=== PATIENT | female | born 1930 | race Caucasian/White ===

== ENCOUNTER 2017-03-09 19:05 | Inpatient (IN) ==
[2017-03-09] MEDS ORDERED: *HR* HYDROmorphone (PF) 1 MG/ML SYRINGE IVP ONE (19:08)
[2017-03-09] MEDS ORDERED: Ondansetron 4 MG/2 ML VIAL IVP ONE (19:14)
--- NOTE | 2017-03-09 19:36 | Emergency Department Note ---
Disposition Clinical Impression: Pancreatitis Qualifiers: Chronicity: acute Pancreatitis type: unspecified pancreatitis type Acute pancreatitis complication: unspecified Qualified Code(s): K85.90 - Acute pancreatitis without necrosis or infection, unspecified Disposition: Admitted As Inpatient Condition: Fair Time of Disposition: 21:55 Abdominal Pain HPI - General Chief Complaint: ED Abdominal Pain Stated Complaint: abdominal pain Time Seen by Provider: 03/09/17 19:07 Source: patient Mode of arrival: EMS Limitations: no limitations Nursing Notes Reviewed: Yes Vital Signs Reviewed: Yes - History of Present Illness HPI Narrative: Mr. Geronimo is an 86-year-old woman with a history of chronic pancreatitis, cholecystitis without surgical intervention who presents to the ED with severe epigastric and right upper quadrant abdominal pain for approximately 2 hours duration. She says the onset of the pain was immediate and it was 10 out of 10 , and she says that it feels almost exactly like the time that she had pancreatitis in the past. The pain is sharp, epigastric in location additionally with right upper quadrant pain that radiates towards the back, constant. Nothing makes the pain better or worse. She denies nausea and vomiting at this time, and also denies chest pain, shortness of breath. She also denies fevers and chills. She has no other acute complaints at this time. Pain Scale: 9 - Related Data Home Medications Medication Instructions Recorded Confirmed ALPRAZolam [Xanax 0.25 MG Tablet] 0.25 mg PO BID 05/06/15 05/06/15 Aspirin/Dipyridamole 25/200 MG 1 cap PO BID 05/06/15 05/06/15 [Aggrenox 25mg-200mg] Docusate [Colace] 100 mg PO BID 05/06/15 05/06/15 Losartan 100 mg PO DAILY 05/06/15 05/06/15 Oxycodone HCl/Acetaminophen 10 - 325 mg PO QID PRN 05/06/15 05/06/15 [Endocet 2.5-325 mg Tablet] Pravastatin Sodium [Pravachol] 40 mg PO DAILY 05/06/15 05/06/15 amLODIPine [Norvasc] 5 mg PO DAILY 05/06/15 05/06/15 Allergies Allergy/AdvReac Type Severity Reaction Status Date / Time No Known Allergies Allergy Verified 05/05/15 23:14 Constitutional: Denies: fever, chills Cardiovascular: Denies: chest pain, palpitations, dyspnea on exertion, orthopnea Respiratory: Denies: cough, dyspnea Gastrointestinal: Reports: constipation. Denies: nausea, vomiting, diarrhea, melena Genitourinary: Denies: urgency, dysuria Musculoskeletal: Denies: back pain, neck pain, myalgia Integumentary: Denies: rash, pruritus Neurological: Denies: headache Endocrine: Denies: heat or cold intolerance Allergic/Immunologic: Denies: urticaria Abdominal Pain PMH - Past Medical History Medical history: Reports: arthritis, asthma, CVA, GERD, GI bleed, hyperlipidemia , hypertension, osteoporosis, TIA, other Female Surgical History: Reports: no surgical history Psychiatric history: Reports: anxiety - Social History Smoking status: Former smoker Alcohol use: Reports: none Drug use: Reports: none Physical Exam Gen.: Vitals noted. No acute distress. AAOx3 HEENT: PERRL/EOMI, oropharynx clear, Normocephalic, atraumatic Neck: Supple. No adenopathy. Cardiac: RRR, no murmur, +S1/S2 Pulmonary: CTA bilaterally, no wheezes, rales or rhonchi, equal chest expansion Abdomen: soft, diffusely tender with exquisite tenderness located in epigastric and RUQ. Positive Berkowitz sign Back: Nontender throughout. MSK: no joint swelling noted Extremities: no BLE edema, nontender calf, no cyanosis or clubbing Neuro: A&Ox3, moves all extremities, no focal deficits Psych: Appropriate mood and behavior - General Limitations: no limitations General appearance: alert Course Vital Signs Temperature 97.5 F L 03/09/17 19:08 Pulse Rate 68 03/09/17 19:08 Respiratory Rate 18 03/09/17 19:08 Blood Pressure 171/76 03/09/17 19:08 O2 Sat by Pulse Oximetry 96 03/09/17 19:08 Temperature 97.5 F L 03/09/17 19:08 Pulse Rate 88 03/09/17 21:45 Respiratory Rate 16 03/09/17 21:45 Blood Pressure 125/84 03/09/17 21:45 O2 Sat by Pulse Oximetry 98 03/09/17 21:45 Oxygen Delivery Oxygen Delivery Room Air Abdominal Pain - MDM Narrative Medical decision making narrative: Reviewed patient's labs and imaging. The patient's presentation is consistent with acute pancreatitis which is seen on CT. I initiated pain medication as well as IV fluids. Due to the high-risk nature of this patient's condition, I will consult the hospitalist for admission to the hospital. - Differential Diagnosis Differential Diagnosis: Likely: diverticulosis, pancreatitis - Medical Records Medical records reviewed: Yes I reviewed the patient's medical records. - Lab Data Lab results reviewed: Yes I reviewed the patient's lab results. Result diagrams: 03/09/17 19:44 03/09/17 19:44 Lab Results 03/09/17 03/09/17 03/09/17 Range/Units 19:44 19:44 19:44 WBC 13.4 H (4.3-11.1) K/mcL RBC 3.95 (3.82-4.97) M/mcL Hgb 12.2 (11.5-15.4) g/dL Hct 37.1 (35.3-44.9) % MCV 93.9 (83.0-100.0) fL MCH 30.9 (28.0-33.3) pg MCHC 32.9 (31.6-35.5) g/dL RDW 11.6 (11.5-14.5) % Plt Count 233 (140-400) K/mcL MPV 8.9 L (9.4-12.4) fL Immature Gran % 0.4 (0-4) % Seg Neutrophils % 83.6 % Lymphocytes % 11.9 % Monocytes % 3.8 % Eosinophils % 0.2 % Basophils % 0.1 % Neutrophils # 11.2 H (1.6-8.9) K/mcL Lymphocytes # 1.6 (0.6-4.6) K/mcL Monocytes # 0.5 (0.0-1.3) K/mcL Eosinophils # 0.0 (0.0-0.6) K/mcL Basophils # 0.0 (0.0-0.2) K/mcL Immature Plt Fraction 2.0 (1.1-6.1) % Sodium 132 L (136-145) mEq/L Potassium 3.1 L (3.5-5.1) mEq/L Chloride 99 (98-107) mEq/L Carbon Dioxide 23 (23-29) mEq/L BUN 11 (8-23) mg/dL Creatinine 0.80 (0.60-1.20) mg/dL Est GFR ( Amer) > 60 (> 60) Est GFR (Non-Af Amer) > 60 (> 60) BUN/Creatinine Ratio 14 (6-26) Glucose 156 H (70-105) mg/dL Calculated Osmolality 277 L (280-300) Lactic Acid 2.0 (0.5-2.2) mmol/L Calcium 8.8 (8.6-10.3) mg/dL Total Bilirubin 0.9 (0.3-1.0) mg/dL Direct Bilirubin 0.5 H (0.0-0.2) mg/dL Indirect Bilirubin 0.4 (0.0-1.2) mg/dL AST 361 H (13-39) Units/L ALT 83 H (7-52) Units/L Alkaline Phosphatase 153 H (34-104) Units/L Troponin I (< 0.04) ng/mL Serum Total Protein 6.1 L (6.4-8.9) g/dL Albumin 3.6 (3.5-5.7) g/dL Globulin 2.5 (2.4-3.5) g/dL Albumin/Globulin Ratio 1.4 (1.1-2.2) Lipase 1257 H (11-82) Units/L Urine Color (Yellow) Urine Clarity (Clear) Urine pH (5.0-8.0) pH Units Ur Specific [place] (1.010-1.025) Urine Protein (Neg-Trace) mg/dL Urine Glucose (UA) (Normal) mg/dL Urine Ketones (Negative) mg/dL Urine Blood (Negative) Urine Nitrite (Negative) Urine Bilirubin (Negative) Urine Urobilinogen (Normal) mg/dL Ur Leukocyte Esterase (Negative) Urine Microscopic RBC (0-3) per hpf Urine Microscopic WBC (0-3) per hpf Ur Squamous Epith Cells (None-Few) per lpf Urine Bacteria (None-Few) per hpf Hyaline Casts (None-Few) per lpf Ur Culture Indicated? (NO) 03/09/17 03/09/17 Range/Units 19:44 20:12 WBC (4.3-11.1) K/mcL RBC (3.82-4.97) M/mcL Hgb (11.5-15.4) g/dL Hct (35.3-44.9) % MCV (83.0-100.0) fL MCH (28.0-33.3) pg MCHC (31.6-35.5) g/dL RDW (11.5-14.5) % Plt Count (140-400) K/mcL MPV (9.4-12.4) fL Immature Gran % (0-4) % Seg Neutrophils % % Lymphocytes % % Monocytes % % Eosinophils % % Basophils % % Neutrophils # (1.6-8.9) K/mcL Lymphocytes # (0.6-4.6) K/mcL Monocytes # (0.0-1.3) K/mcL Eosinophils # (0.0-0.6) K/mcL Basophils # (0.0-0.2) K/mcL Immature Plt Fraction (1.1-6.1) % Sodium (136-145) mEq/L Potassium (3.5-5.1) mEq/L Chloride (98-107) mEq/L Carbon Dioxide (23-29) mEq/L BUN (8-23) mg/dL Creatinine (0.60-1.20) mg/dL Est GFR ( Amer) (> 60) Est GFR (Non-Af Amer) (> 60) BUN/Creatinine Ratio (6-26) Glucose (70-105) mg/dL Calculated Osmolality (280-300) Lactic Acid (0.5-2.2) mmol/L Calcium (8.6-10.3) mg/dL Total Bilirubin (0.3-1.0) mg/dL Direct Bilirubin (0.0-0.2) mg/dL Indirect Bilirubin (0.0-1.2) mg/dL AST (13-39) Units/L ALT (7-52) Units/L Alkaline Phosphatase (34-104) Units/L Troponin I < 0.03 (< 0.04) ng/mL Serum Total Protein (6.4-8.9) g/dL Albumin (3.5-5.7) g/dL Globulin (2.4-3.5) g/dL Albumin/Globulin Ratio (1.1-2.2) Lipase (11-82) Units/L Urine Color Yellow (Yellow) Urine Clarity Clear (Clear) Urine pH 7.0 (5.0-8.0) pH Units Ur Specific [place] 1.020 (1.010-1.025) Urine Protein 30 H (Neg-Trace) mg/dL Urine Glucose (UA) Normal (Normal) mg/dL Urine Ketones Negative (Negative) mg/dL Urine Blood Negative (Negative) Urine Nitrite Negative (Negative) Urine Bilirubin Negative (Negative) Urine Urobilinogen 2.0 H (Normal) mg/dL Ur Leukocyte Esterase Moderate H (Negative) Urine Microscopic RBC 0-3 (0-3) per hpf Urine Microscopic WBC 5-15 H (0-3) per hpf Ur Squamous Epith Cells Many H (None-Few) per lpf Urine Bacteria Few (None-Few) per hpf Hyaline Casts Few (None-Few) per lpf Ur Culture Indicated? NO (NO) - Radiology Data Radiology results reviewed: Yes I reviewed the patient's radiology results. - EKG Data EKG attestation: Yes I reviewed and interpreted this EKG. EKG results narrative: EKG demonstrates normal sinus rhythm with a ventricular rate of 88 NE 160 QRS [address]-T depression in leads V4 through V6 but do not appear on previous EKG
[2017-03-09 19:44] LABS: Basophils % 0.1 %; Eosinophils % 0.2 %; Hematocrit 37.1 % (35.3-44.9); Hemoglobin 12.2 g/dL (11.5-15.4); Immature Granulocytes % 0.4 % (0-4); Lymphocytes # 1.6 K/mcL (0.6-4.6); Lymphocytes % 11.9 %; Mean Corpuscular HGB Conc 32.9 g/dL (31.6-35.5); Mean Corpuscular Hemoglobin 30.9 pg (28.0-33.3); Mean Corpuscular Volume 93.9 fL (83.0-100.0); Mean Platelet Volume 8.9 fL (9.4-12.4); Monocytes # 0.5 K/mcL (0.0-1.3); Monocytes % 3.8 %; Neutrophils # 11.2 K/mcL (1.6-8.9); Platelet Count 233 K/mcL (140-400); Red Blood Count 3.95 M/mcL (3.82-4.97); Red Cell Distribution Width 11.6 % (11.5-14.5); Segmented Neutrophils % 83.6 %
--- NOTE | 2017-03-09 20:06 | Emergency Department Note ---
START Narrative - START START: I examined this patient and my medical decision-making was reviewed with the REHABILITATION SPECIALIST/PA/Advanced Practice Nurse/Resident Physician. I agree with the documented findings, disposition and treatment plan as described except to the extent set forth below. I did see the patient spoke with an examine her. I did review the previous record. She does have a history of pancreatitis as well as cholecystitis but has not had surgery for this. The patient has 2-1/2 hours of severe abdominal pain which started approximately at 5:00 this evening. His epigastric pain radiating to the back. Significant discomfort with palpation especially in the epigastric area but also somewhat in the right upper quadrant and left upper quadrant but does have mild generalized discomfort also. The patient does have labs which are pending and CT scan I did receive Dilaudid 1 mg and Zofran 4 mg IV 2006
[2017-03-09] MEDS ORDERED: 0.9 % Sodium Chloride 1,000 ML IVC ONE (20:25)
[2017-03-09] MEDS ORDERED: 0.9 % Sodium Chloride 1,000 ML IVC SCH (20:30)
[2017-03-09] MEDS ORDERED: *HR* Morphine 2 MG/ML SYRINGE IVP ONE (20:40)
[2017-03-09 20:50] LABS: Bilirubin,Urine Negative (Negative); Blood,Urine Negative (Negative); Clarity,Urine Clear (Clear); Color,Urine Yellow (Yellow); Glucose,Urine (UA) Normal (Normal); Ketones,Urine Negative (Negative); Leukocyte Esterase,Urine Moderate (Negative); Nitrite,Urine Negative (Negative); Protein,Urine 30 mg/dL (Neg-Trace)
[2017-03-09 20:52] LABS: RBC,Urine 0-3 per hpf (0-3); Squamous Epithelial Cell,Urine Many per lpf (None-Few)
[2017-03-09 20:58] LABS: Alanine Aminotransferase 83 Units/L (7-52); Albumin 3.6 g/dL (3.5-5.7); Albumin/Globulin Ratio 1.4 (1.1-2.2); Alkaline Phosphatase 153 Units/L (34-104); Aspartate Amino Transferase 361 Units/L (13-39); BUN/Creatinine Ratio 14 (6-26); Bilirubin,Direct 0.5 mg/dL (0.0-0.2); Bilirubin,Indirect 0.4 mg/dL (0.0-1.2); Bilirubin,Total 0.9 mg/dL (0.3-1.0); Blood Urea Nitrogen 11 mg/dL (8-23); Calcium 8.8 mg/dL (8.6-10.3); Carbon Dioxide 23 mEq/L (23-29); Chloride 99 mEq/L (98-107); Globulin 2.5 g/dL (2.4-3.5); Glucose 156 mg/dL (70-105); Lipase 1257 Units/L (11-82); Osmolality,Calculated 277 (280-300); Potassium 3.1 mEq/L (3.5-5.1); Sodium 132 mEq/L (136-145); Total Protein 6.1 g/dL (6.4-8.9); eGFR For African Americans > 60 (> 60); eGFR For Non-African Americans > 60 (> 60)
[2017-03-09 21:04] LABS: Hyaline Casts,Urine Few per lpf (None-Few)
[2017-03-09 21:05] LABS: Bacteria,Urine Few per hpf (None-Few)
--- NOTE | 2017-03-10 00:44 | Internal Med History&Physical ---
Date of Encounter: 03/10/17 Time of Encounter: 00:43 Assessment and Plan (1) Acute on chronic pancreatitis Current visit: Yes Status: Acute Continue IVF hydration, pain control with morphine and zofran for nausea. Repeat lipase in AM. (2) ST segment depression Current visit: Yes Status: Acute Possibly related to volume loss. First troponin negative. Patient has sharp epigastric pain, denies substernal, dull chest pain. Repeat troponin and recheck EKG in AM after fluid hydration. (3) GERD (gastroesophageal reflux disease) Current visit: Yes Status: Acute PPI Qualifiers: Esophagitis presence: esophagitis presence not specified Qualified Code(s) : K21.9 - Gastro-esophageal reflux disease without esophagitis (4) Dyslipidemia Current visit: No Status: Chronic (5) Hypertension Current visit: No Status: Chronic losartan Qualifiers: Hypertension type: essential hypertension Qualified Code(s): I10 - Essential (primary) hypertension (6) DVT prophylaxis Current visit: Yes Status: Acute heparin sq 5000 units bid Internal Medicine - H&P: HPI History of present illness: Ms. Geronimo is a 86 year old female with history of pancreatitis, cholecystitis presents for severe abdominal pain. Pain is described as sharp, in epigastric region and radiates towards her back in between her shoulders. There were no alleviating factors. She eventually developed severe nausea, admits to poor PO intake recently. She most recent episode of pancreatitis with reactive cholecystitis was in 04/2015 and seen as outpatient by Dr. Pathak. CT of abdomen and pelvis today showed inflammatory changes in head of pancreas consistant with acute pancreatitis, gallbladder noted some gallbladder wallthickening versus pericholecystic fluid and did not mention any stones or biliary ductal dilatation. EKG showed ST depressions in V4-V6, with an initial troponin negative. Sodium and potassium were low, AST and ALT were 361 and 83 respectively with Alkaline phosphatase elevated at 153. In the ED she was given one liter of normal saline. She received 1 mg of Dilaudid followed by 4 mg of morphine one time. She currently complains of epigastric pain with nausea. She denies fevers/chills. Past Med Surg Social Fam HX - Past Medical History Medical history: arthritis, asthma, CVA, GERD, GI bleed, hyperlipidemia, hypertension, osteoporosis, TIA, other Psychiatric history: anxiety - Past Surgical History Surgical History: hysterectomy, orthopedic, other - Social History Smoking Status: Former smoker Smokeless Tobacco Status: No Alcohol use: none Drug use: none Internal Medicine - H&P: Meds ALPRAZolam [Xanax 0.25 MG Tablet] 0.25 mg PO BID 05/06/15 [History] Aspirin/Dipyridamole 25/200 MG [Aggrenox 25mg-200mg] 1 cap PO BID 05/06/15 [ History] Docusate [Colace] 100 mg PO BID 05/06/15 [History] Losartan 100 mg PO DAILY 05/06/15 [History] Oxycodone HCl/Acetaminophen [Endocet 2.5-325 mg Tablet] 10 - 325 mg PO QID PRN 05/06/15 [History] Pravastatin Sodium [Pravachol] 40 mg PO DAILY 05/06/15 [History] amLODIPine [Norvasc] 5 mg PO DAILY 05/06/15 [History] 3 Allergy/AdvReac Type Severity Reaction Status Date / Time No Known Allergies Allergy Verified 05/05/15 23:14 All Systems PM: A 10-system review of systems was performed and is negative for pertinent findings except as documented above in the HPI. - Constitutional Constitutional: fatigue, no fever(s), no night sweats - EENT Eyes: no change in vision, no discharge, no pain, no photophobia - Cardiovascular Cardiovascular ROS IM: no chest pain, no diaphoresis, no dyspnea, no lightheadedness, no palpitations, no syncope - Respiratory Respiratory: no cough, no dyspnea, no wheezing, no excessive phlegm production - Gastrointestinal Gastrointestinal: abdominal pain, nausea, no bloating, no change in bowel habits , no change in stool character, no coffee ground emesis, no constipation, no dyspepsia - Genitourinary Genitourinary: no change in urinary stream, no dysuria, no flank pain, no hematuria - Musculoskeletal Musculoskeletal ROS IM: no numbness, no tingling - Constitutional Vitals: Temp Pulse Resp BP Pulse Ox 98.7 F 89 16 169/81 96 03/09/17 22:32 03/09/17 22:32 03/09/17 22:32 03/09/17 22:32 03/09/17 22:32 General appearance: Present: mild distress, A&O X 3 - Respiratory Respiratory exam: Present: CTAB. Absent: accessory muscle use, rales, rhonchi, wheezes - Cardiovascular Cardiovascular exam: Present: RRR, +S1, +S2. Absent: diastolic murmur, gallop, rubs, systolic murmur - GI/Abdominal GI/Abdominal exam: Present: normal bowel sounds, soft, tenderness. Absent: distended, firm, guarding, rebound, rigid, no peritoneal signs Internal Med - H&P Results - Labs CBC & Chem 7: 03/09/17 19:44 03/09/17 19:44
[2017-03-10] MEDS ORDERED: Ondansetron 4 MG/2 ML VIAL IVP PRN (00:45)
[2017-03-10] MEDS ORDERED: *HR* OxyCODONE/APAP 5/325 TABLET PO PRN (00:45)
[2017-03-10] MEDS ORDERED: *HR* HYDROmorphone (PF) 1 MG/ML SYRINGE IVP ONE (00:45)
[2017-03-10] MEDS ORDERED: *HR* Morphine 2 MG/ML SYRINGE IVP PRN ×2 (00:45→11:37)
[2017-03-10] MEDS: 0.9 % Sodium Chloride 1,000 ML IVC SCH ×3 (01:22→20:49)
[2017-03-10] MEDS: *HR* Heparin 5,000 UNIT/ML VIAL SQ SCH ×2 (06:46→19:21)
[2017-03-10] MEDS: Pantoprazole 40 MG VIAL IVP SCH (08:04)
--- NOTE | 2017-03-10 10:03 | Event Note ---
Date of Encounter: 03/10/17 Time of Encounter: 09:30 Patient was seen and examined. She is admitted with an acute pancreatitis. This is recurrent. She has had it in the past multiple times. She had it earlier this year. At the time does question regarding elective laparoscopic cholecystectomy. At the time she did not want to go through that and wanted to follow up with Dr. florentino. Apparently she did see Dr. florentino sometime in the past I am not exactly sure what happened but the gallbladder was never removed. She tells me she wants her son involved in any decision making at this time regarding her gallbladder. We will continue to treat her acute pancreatitis as usual with IV fluids and bowel rest. She may be a candidate for an elective cholecystectomy once her acute issue resolves. We will asked Dr. florentino to see her.
--- NOTE | 2017-03-10 13:07 | General Surgery Consult Note ---
Date of Encounter: 03/10/17 Time of Encounter: 13:06 History of Present Illness Consult date: 03/10/17 Reason for consult: other (recurrent pancreatitis) Requesting physician: Usama Tai History of present illness: 86 yo, admitted after presenting to [facility] ED with recurrent severe abdominal pain without N/V. Laboratories notable for elevated white count, 13.4; neutrophilia 11.2%; hypokalemia 3.1; hyponatremia 132; elevated AST 361, ALT 83 , alkaline phosphatase 153, lipase 1257. Patient is known to me having presented to [facility] with recurrent acute pancreatitis April 2015. The patient has a history of prior pancreatitis June 2013. CT abdomen and pelvis completed 03/09/17 and ultrasound of the gallbladder completed 03/10/17 were reviewed with [facility] with comparison to imaging obtained during previous hospitalizations. The patient was last seen in my office 06/24/16. At that time and the lengthy extensive discussion was completed as to the potential benefit of surgery. Review of all current and previous imaging, including MRCP, do not conclusively demonstrate cholelithiasis. The 2 primary reasons for acute pancreatitis in [facility] include gallstones and alcohol abuse. Other causes of pancreatitis include idiopathic etiologies such as thiazide diuretics, hypertriglyceridemia, hyperlipidemia, peptic ulcer disease with extension of the ulcer and associated inflammation into the pancreas, cholesterol lowering agents, and spasm of the sphincter of Oddi. The patient's past medical history include: Recurrent acute pancreatitis as noted, recent ST segment depression, GERD, dyslipidemia, hypertension, history thiazide diuretics; arthritis, asthma, previous stroke, osteoporosis; chronic hip and back pain. Surgical history: Hysterectomy, rotator cuff repair Allergies: Patient indicates no known drug allergies, however, previous medical records indicate allergies to Cipro and baclofen Medications: Alprazolam 0.25 mg by mouth twice a day Aspirin/dipyridamole 25/200 one by mouth twice a day Docusate 100 mg by mouth twice a day Losartan 100 mg by mouth daily Oxycodone with acetaminophen either 2.5/325 or 10/325 4 times daily as needed for pain Pravastatin 40 mg by mouth daily Amlodipine 5 mg by mouth daily Social history: Patient is a former smoker; she quit approximately 1999. The patient admits to history of alcohol consumption the past but none recently. Menarche at age 12; menopause not recalled; G2, P2. Physical examination: Elderly patient resting comfortably in her hospital bed. She does not appear to be in acute distress. Skin is warm, without evidence of jaundice. Patient has not been febrile, currently 98.1; [place]on temperature through the night 99.3. Pulse 77, respirations 16 and unlabored, blood pressure 103/58; SPO2 on room air 97%. Lungs: Clear bilaterally with diminished bibasilar breath sounds; no audible wheezes or rales Cardiac: Regular rate, no appreciable murmurs Abdomen: Soft, nondistended with mild dario-umbilical and epigastric abdominal pain. No obvious masses. No rebound. Hypoactive bowel sounds. Extremities: No obvious clubbing, cyanosis, or edema. Impression: A 86-year-old female with recurrent pancreatitis. Etiology remains obscure and in question as, to date, no gallstones have been definitively identified. Treatment options include cholecystectomy. Surgical risks include hemorrhage, infection, intra-abdominal abscess, bile leak, injury to adjacent ducts, vessels, organs, and bowel. Possible recurrent acute pancreatitis as well as development postcholecystectomy diarrhea. Current status appears improved as pain is diminished and lipase has diminished to 423. Surgical option discussed with patient. The patient has been encouraged to discuss this with her family. Thank you for this consultation, I will follow with you. Past Med Surg Social Fam HX - Past Medical History Medical history: arthritis, asthma, CVA, GERD, GI bleed, hyperlipidemia, hypertension, osteoporosis, TIA, other Psychiatric history: anxiety - Past Surgical History Surgical History: hysterectomy, orthopedic, other - Social History Smoking Status: Former smoker Smokeless Tobacco Status: No Alcohol use: none Drug use: none Medications and Allergies ALPRAZolam [Xanax 0.25 MG Tablet] 0.125 mg PO BID 05/06/15 [History] Docusate [Colace] 100 mg PO BID 05/06/15 [History] Pravastatin Sodium [Pravachol] 40 mg PO DAILY 05/06/15 [History] Clopidogrel [Plavix] 75 mg PO DAILY 03/10/17 [History] Losartan [Cozaar] 100 mg PO DAILY 03/10/17 [History] Metoprolol XL (24 HR) Succ [Toprol XL] 50 mg PO DAILY 03/10/17 [History] OxyCODONE ER (12 HR) [OxyCONTIN] 20 mg PO Q12HR 03/10/17 [History] Oxycodone HCl/Acetaminophen [Percocet 10-325 mg Tablet] 1 tab PO Q6H PRN [History] hydroCHLOROthiazide [Hydrochlorothiazide] 25 mg PO DAILY 03/10/17 [History] 3 Allergy/AdvReac Type Severity Reaction Status Date / Time No Known Allergies Allergy Verified 05/05/15 23:14 Review of Systems All systems PM: A 10-system review of systems was performed and is negative for pertinent findings except as documented above in the HPI. General Surgery Exam Initial Vital Signs Temp Pulse Resp BP Pulse Ox 97.5 F L 68 18 171/76 96 03/09/17 19:08 03/09/17 19:08 03/09/17 19:08 03/09/17 19:08 03/09/17 19:08 Exam Initial Vital Signs Temp Pulse Resp BP Pulse Ox 97.5 F L 68 18 171/76 96 03/09/17 19:08 03/09/17 19:08 03/09/17 19:08 03/09/17 19:08 03/09/17 19:08 Results - Labs 03/09/17 19:44 03/09/17 19:44 Abnormal lab results WBC 13.4 K/mcL (4.3-11.1) H 03/09/17 19:44 MPV 8.9 fL (9.4-12.4) L 03/09/17 19:44 Neutrophils # 11.2 K/mcL (1.6-8.9) H 03/09/17 19:44 Sodium 132 mEq/L (136-145) L 03/09/17 19:44 Potassium 3.1 mEq/L (3.5-5.1) L 03/09/17 19:44 Glucose 156 mg/dL (70-105) H 03/09/17 19:44 Calculated Osmolality 277 (280-300) L 03/09/17 19:44 Direct Bilirubin 0.5 mg/dL (0.0-0.2) H 03/09/17 19:44 AST 361 Units/L (13-39) H 03/09/17 19:44 ALT 83 Units/L (7-52) H 03/09/17 19:44 Alkaline Phosphatase 153 Units/L (34-104) H 03/09/17 19:44 Serum Total Protein 6.1 g/dL (6.4-8.9) L 03/09/17 19:44 Lipase 423 Units/L (11-82) H 03/10/17 03:20 Urine Protein 30 mg/dL (Neg-Trace) H 03/09/17 20:12 Urine Urobilinogen 2.0 mg/dL (Normal) H 03/09/17 20:12 Ur Leukocyte Esterase Moderate (Negative) H 03/09/17 20:12 Urine Microscopic WBC 5-15 per hpf (0-3) H 03/09/17 20:12 Ur Squamous Epith Cells Many per lpf (None-Few) H 03/09/17 20:12 All other labs normal. Consult Discharge Plan - Plan Referrals: Samir Chino Jr, MD [Primary Care Provider] -
--- NOTE | 2017-03-10 18:23 | Electrocardiograph Report ---
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
[2017-03-10] MEDS: *HR* OxyCODONE/APAP 5/325 TABLET PO PRN (20:21)
[2017-03-11] MEDS ORDERED: *HR* LORazepam 2 MG/ML VIAL IVP ONE (04:31)
[2017-03-11 04:44] LABS: Bilirubin,Urine Small (Negative); Blood,Urine Negative (Negative); Clarity,Urine Cloudy (Clear); Color,Urine Dark Yellow (Yellow); Glucose,Urine (UA) Normal (Normal); Ketones,Urine Negative (Negative); Leukocyte Esterase,Urine Small (Negative); Nitrite,Urine Negative (Negative); Protein,Urine Trace mg/dL (Neg-Trace); Specific Gravity,Urine 1.016 (1.010-1.025); Urobilinogen,Urine Normal (Normal)
[2017-03-11 04:46] LABS: Bacteria,Urine None Seen per hpf (None-Few); Hyaline Casts,Urine None Seen per lpf (None-Few); RBC,Urine 0-3 per hpf (0-3); Squamous Epithelial Cell,Urine Many per lpf (None-Few)
[2017-03-11] MEDS: 0.9 % Sodium Chloride 1,000 ML IVC SCH ×2 (04:55→11:42)
[2017-03-11] MEDS ORDERED: 0.9 % Sodium Chloride 1,000 ML IVC SCH (05:00)
[2017-03-11] MEDS: *HR* Heparin 5,000 UNIT/ML VIAL SQ SCH ×2 (05:42→16:20)
[2017-03-11 06:56] LABS: Alanine Aminotransferase 121 Units/L (7-52); Albumin 2.4 g/dL (3.5-5.7); Albumin/Globulin Ratio 1.3 (1.1-2.2); Alkaline Phosphatase 99 Units/L (34-104); Amylase 69 Units/L (29-103); Aspartate Amino Transferase 148 Units/L (13-39); BUN/Creatinine Ratio 32 (6-26); Bilirubin,Total 0.5 mg/dL (0.3-1.0); Blood Urea Nitrogen 15 mg/dL (8-23); Calcium 7.3 mg/dL (8.6-10.3); Carbon Dioxide 18 mEq/L (23-29); Chloride 111 mEq/L (98-107); Globulin 1.8 g/dL (2.4-3.5); Glucose 81 mg/dL (70-105); Lipase 62 Units/L (11-82); Osmolality,Calculated 282 (280-300); Potassium 2.7 mEq/L (3.5-5.1); Sodium 136 mEq/L (136-145); Total Protein 4.2 g/dL (6.4-8.9); eGFR For African Americans > 60 (> 60); eGFR For Non-African Americans > 60 (> 60)
[2017-03-11 06:58] LABS: Basophils % 0.1 %; Eosinophils % 0.1 %; Hematocrit 31.3 % (35.3-44.9); Immature Granulocytes % 0.2 % (0-4); Lymphocytes # 1.2 K/mcL (0.6-4.6); Lymphocytes % 11.9 %; Mean Corpuscular HGB Conc 31.9 g/dL (31.6-35.5); Mean Corpuscular Hemoglobin 31.5 pg (28.0-33.3); Mean Corpuscular Volume 98.7 fL (83.0-100.0); Mean Platelet Volume 9.7 fL (9.4-12.4); Monocytes # 0.5 K/mcL (0.0-1.3); Monocytes % 4.5 %; Neutrophils # 8.4 K/mcL (1.6-8.9); Platelet Count 115 K/mcL (140-400); Red Blood Count 3.17 M/mcL (3.82-4.97); Red Cell Distribution Width 12.2 % (11.5-14.5); Segmented Neutrophils % 83.2 %
[2017-03-11] MEDS: Pantoprazole 40 MG VIAL IVP SCH (07:52)
[2017-03-11] MEDS ORDERED: Potassium Chloride 40 MEQ, Lidocaine 1% 2 ML in D5% in Water 500 ML IVPB ONE ×2 (10:10→10:12)
--- NOTE | 2017-03-11 10:10 | General Surgery Progress Note ---
Date of Encounter: 03/11/17 Time of Encounter: 10:02 Subjective Patient reports: feels better, still having pain Narrative: General Surgery - follow up acute pancreatitis Patient resting comfortably but on awakening was quite confused. Nursing report the patient trying to bite them. The patient also tried to strike me as I tried to examine her. The patient continues to exhibit signs and symptoms of persistent epigastric abdominal pain. On reexamination, this abdominal pain seemed to be less than on initial examination Patient remains afebrile, most recently 97.7, hemodynamically stable with pulse 72, respirations 16, blood pressure 121/67. Lungs: Clear though respiratory effort was diminished Abdomen: Persistent periumbilical and supraumbilical tenderness; no discernible masses. No rebound. Active bowel sounds Unable to determine if the patient passed flatus. Small formed bowel movement recorded 03/10/17 Laboratories: Leukocytosis resolved, 10.1; hemoglobin and hematocrit have fallen to 10.0 and 31.3 respectively - likely due to acute illness and IV fluids Platelet count has diminished to 115,000 - possibly due to HIT Electrodes notable for sodium has corrected to 136, potassium of 2.7, chloride 111, BUN 15, creatinine 0.47 AST improved to 148, ALT to 121, alkaline phosphatase 99; total bilirubin 0.5. 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 Recommendations: Allow clear liquids; have discussed with dietitian providing supplements May advance diet as tolerated as long as patient does not demonstrate increasing abdominal pain, N/V, or signs and symptoms of worsening pancreatitis Discussion regarding surgery/cholecystectomy ongoing with patient and family Objective Vital Signs - Last 8 Hours Temp Pulse Resp BP Pulse Ox 03/11/17 04:00 97.7 F 72 16 121/67 93 Intake and Output 03/10/17 03/11/17 03/11/17 23:59 07:59 15:59 Intake Total 1000 / 1000 1000 / 1000 0 / 0 Output Total 300 / 300 0 / 0 Balance 1000 / 1000 700 / 700 0 / 0 Intake: IV Fluids 1000 / 1000 1000 / 1000 0.9 % Sodium Chloride 1,000 ML 1000 / 1000 1000 / 1000 @ 125 mls/hr IVC .Q8H MATTHEW Rx#: [id number] Oral 0 / 0 0 / 0 0 / 0 Output: Urine 300 / 300 0 / 0 Other: Meal NPO Percent of Meal Consumed 0% Stool Size Small Stool Consistency formed Stool Color Brown # Bowel Movements 1 Weight 47.8 kg Blood Glucose* 98 94 Patient Weight 03/11/17 23:59 Weight 47.8 kg - Labs 03/11/17 06:32 03/11/17 06:32 Diabetes panel 03/11/17 Range/Units 06:32 Sodium 136 (136-145) mEq/L Potassium 2.7 L (3.5-5.1) mEq/L Chloride 111 H (98-107) mEq/L Carbon Dioxide 18 L (23-29) mEq/L BUN 15 (8-23) mg/dL Creatinine 0.47 L (0.60-1.20) mg/dL Glucose 81 (70-105) mg/dL Calcium 7.3 L (8.6-10.3) mg/dL AST 148 H (13-39) Units/L ALT 121 H (7-52) Units/L Alkaline Phosphatase 99 (34-104) Units/L Albumin 2.4 L (3.5-5.7) g/dL Calcium panel 03/11/17 Range/Units 06:32 Calcium 7.3 L (8.6-10.3) mg/dL Albumin 2.4 L (3.5-5.7) g/dL Pituitary panel 03/11/17 Range/Units 06:32 Sodium 136 (136-145) mEq/L Potassium 2.7 L (3.5-5.1) mEq/L Chloride 111 H (98-107) mEq/L Carbon Dioxide 18 L (23-29) mEq/L BUN 15 (8-23) mg/dL Creatinine 0.47 L (0.60-1.20) mg/dL Glucose 81 (70-105) mg/dL Calcium 7.3 L (8.6-10.3) mg/dL Adrenal panel 03/11/17 Range/Units 06:32 Sodium 136 (136-145) mEq/L Potassium 2.7 L (3.5-5.1) mEq/L Chloride 111 H (98-107) mEq/L Carbon Dioxide 18 L (23-29) mEq/L BUN 15 (8-23) mg/dL Creatinine 0.47 L (0.60-1.20) mg/dL Glucose 81 (70-105) mg/dL Calcium 7.3 L (8.6-10.3) mg/dL Total Bilirubin 0.5 (0.3-1.0) mg/dL AST 148 H (13-39) Units/L ALT 121 H (7-52) Units/L Alkaline Phosphatase 99 (34-104) Units/L Albumin 2.4 L (3.5-5.7) g/dL Consult Discharge Plan - Plan Referrals: Samir Chino Jr, MD [Primary Care Provider] -
--- NOTE | 2017-03-11 10:20 | Internal Med Progress Note ---
Date of Encounter: 03/11/17 Time of Encounter: 10:15 - Assessment and plan (1) Confusion Current Visit: Yes Status: Acute Assessment and plan: Patient may be . We will try to reorient the patient today. We will see how her mental status does throughout the day. She is completely oriented yesterday. We will continue to follow. (2) Hypertension Current Visit: No Status: Chronic Assessment and plan: Blood pressure is stable despite holding her blood pressure medications. I will continue to hold today. Qualifiers: Hypertension type: essential hypertension Qualified Code(s): I10 - Essential (primary) hypertension (3) Pancreatitis, acute Current Visit: No Status: Resolved Assessment and plan: Seems to be doing well. Her lipase is normalized. Surgery is following. She will follow-up with Dr. florentino as an outpatient. We will advance diet to clear liquid diet today. Possibly discharge tomorrow. Does not seem to be in so much pain as she has only used one Royal since admission. Qualifiers: Pancreatitis type: unspecified pancreatitis type Acute pancreatitis complication: unspecified Qualified Code(s): K85.90 - Acute pancreatitis without necrosis or infection, unspecified (4) Hypokalemia Current Visit: Yes Status: Acute Assessment and plan: We will give 60 of oral potassium and 40 of IV potassium. We will check potassium level at 4 PM today. (5) DVT prophylaxis Current Visit: Yes Status: Acute Assessment and plan: Heparin subcutaneous - Subjective Interval history: No acute events. The patient is somewhat confused this morning. She was not aware that she has not been a regional. She was not like this yesterday. She just woke up however. She has been nothing by mouth. She was seen by surgery with no plans for any surgical interventions. She wants to be home for [place]. She has been afebrile. - Constitutional Vitals: Temp Pulse Resp BP Pulse Ox 97.7 F 72 16 121/67 93 03/11/17 04:00 03/11/17 04:00 03/11/17 04:00 03/11/17 04:00 03/11/17 04:00 General appearance: Present: mild distress, A&O X 3 Exam: GEN: NAD. alert to self only CVS: RRR. S1, S2, No m/r/g RESP: CTAB ABD: Soft, NT, ND, +BS EXT: No edema. 2+ DP, No rashes NEURO: Nonfocal Internal Medicine: Result - Labs CBC & Chem 7: 03/11/17 06:32 03/11/17 06:32 Labs: Short CBC 03/11/17 Range/Units 06:32 WBC 10.1 (4.3-11.1) K/mcL Hgb 10.0 L D (11.5-15.4) g/dL Hct 31.3 L (35.3-44.9) % Plt Count 115 L D (140-400) K/mcL Neutrophils # 8.4 (1.6-8.9) K/mcL BMP 03/11/17 06:32 Sodium 136 Potassium 2.7 L Chloride 111 H Carbon Dioxide 18 L BUN 15 Creatinine 0.47 L Glucose 81 Calcium 7.3 L Liver Function 03/11/17 Range/Units 06:32 Total Bilirubin 0.5 (0.3-1.0) mg/dL AST 148 H (13-39) Units/L ALT 121 H (7-52) Units/L Alkaline Phosphatase 99 (34-104) Units/L Albumin 2.4 L (3.5-5.7) g/dL Urine 03/11/17 Range/Units 04:18 Urine Color Dark Yellow (Yellow) Urine Clarity Cloudy A (Clear) Urine pH 6.0 (5.0-8.0) pH Units Ur Specific [place] 1.016 (1.010-1.025) Urine Protein Trace (Neg-Trace) mg/dL Urine Glucose (UA) Normal (Normal) mg/dL Consult Discharge Plan - Plan Referrals: Samir Chino Jr, MD [Primary Care Provider] -
[2017-03-11] MEDS: *HR* OxyCODONE/APAP 5/325 TABLET PO PRN ×2 (11:43→21:43)
[2017-03-12] MEDS: 0.9 % Sodium Chloride 1,000 ML IVC SCH (04:33)
[2017-03-12] MEDS: *HR* Heparin 5,000 UNIT/ML VIAL SQ SCH (04:34)
[2017-03-12 04:48] LABS: Basophils % 0.1 %; Eosinophils % 0.2 %; Hemoglobin 10.3 g/dL (11.5-15.4); Immature Granulocytes % 0.4 % (0-4); Lymphocytes # 1.6 K/mcL (0.6-4.6); Lymphocytes % 18.8 %; Mean Corpuscular HGB Conc 32.2 g/dL (31.6-35.5); Mean Corpuscular Hemoglobin 30.9 pg (28.0-33.3); Mean Corpuscular Volume 96.1 fL (83.0-100.0); Mean Platelet Volume 9.4 fL (9.4-12.4); Monocytes # 0.4 K/mcL (0.0-1.3); Monocytes % 5.1 %; Neutrophils # 6.4 K/mcL (1.6-8.9); Platelet Count 146 K/mcL (140-400); Red Blood Count 3.33 M/mcL (3.82-4.97); Red Cell Distribution Width 12.3 % (11.5-14.5); Segmented Neutrophils % 75.4 %
[2017-03-12 04:59] LABS: BUN/Creatinine Ratio 23 (6-26); Blood Urea Nitrogen 11 mg/dL (8-23); Calcium 7.6 mg/dL (8.6-10.3); Carbon Dioxide 20 mEq/L (23-29); Chloride 113 mEq/L (98-107); Glucose 94 mg/dL (70-105); Osmolality,Calculated 281 (280-300); Sodium 136 mEq/L (136-145); eGFR For African Americans > 60 (> 60); eGFR For Non-African Americans > 60 (> 60)
--- NOTE | 2017-03-12 09:37 | Discharge Summary ---
Date of Encounter: 03/12/17 Time of Encounter: 09:00 - Discharge Diagnosis (1) Confusion Priority: Primary Status: Acute (2) Hypertension Priority: Secondary Status: Chronic Qualifiers: Hypertension type: essential hypertension Qualified Code(s): I10 - Essential (primary) hypertension (3) Pancreatitis, acute Priority: Primary Status: Resolved Qualifiers: Pancreatitis type: unspecified pancreatitis type Acute pancreatitis complication: unspecified Qualified Code(s): K85.90 - Acute pancreatitis without necrosis or infection, unspecified (4) Hypokalemia Priority: Primary Status: Acute - Discharge Medications Home Medications: ALPRAZolam [Xanax 0.25 MG Tablet] 0.125 mg PO BID 05/06/15 [History] Docusate [Colace] 100 mg PO BID 05/06/15 [History] Pravastatin Sodium [Pravachol] 40 mg PO DAILY 05/06/15 [History] Clopidogrel [Plavix] 75 mg PO DAILY 03/10/17 [History] Losartan [Cozaar] 100 mg PO DAILY 03/10/17 [History] Metoprolol XL (24 HR) Succ [Toprol Xl] 50 mg PO DAILY 03/10/17 [History] OxyCODONE ER (12 HR) [OxyCONTIN] 20 mg PO Q12HR 03/10/17 [History] Oxycodone HCl/Acetaminophen [Percocet 10-325 mg Tablet] 1 tab PO Q6H PRN [History] hydroCHLOROthiazide [Hydrochlorothiazide] 25 mg PO DAILY 03/10/17 [History] Allergies/Adverse Reactions: 3 Allergy/AdvReac Type Severity Reaction Status Date / Time No Known Allergies Allergy Verified 05/05/15 23:14 Date of admission: 03/10/17 12:03 Primary care physician: Samir Chino Jr, MD Consults: 03/10/17 12:30 Consult to Physical Therapy [CONS] Routine Comment: Evaluate, develop and implement POC Reason for Consult: weakness lives alone 03/10/17 12:31 Consult to Occupational Therapy [CONS] Routine Comment: Evaluate, develop and implement POC Reason for Consult: weakness lives alone - Patient Status Disposition: Home, Self-Care Overall status at discharge: patient is back to baseline - Discharge Instructions Instructions: Pancreatitis (DC) Follow Up With: Samir Chino Jr, MD [Primary Care Provider] - Lang Pathak MD [Non-Partnered Physician] - (2 weeks) Additional Instructions: Follow up with Dr. Pathak in 2-3 weeks. Call office ([phone]) on 03/15 or 03/16 to schedule appointment. - Diet and Activity Activity: resume usual activities as tolerated Hospital course: Ms. Geronimo is a 86 year old female with history of pancreatitis who presented with severe abdominal pain. Of note the patient was admitted in the past for pancreatitis and was thought to be possibly related to gallbladder disease although this was never definitive. At that time she was offered cholecystectomy which she refused. This time she was again admitted with acute pancreatitis. She had a CT abdomen and pelvis which showed inflammatory changes in head of pancreas consistent with acute pancreatitis, gallbladder noted some gallbladder wallthickening versus pericholecystic fluid and did not mention any stones or biliary ductal dilatation. EKG showed ST depressions in V4-V6, with troponins being negative she was admitted to the hospitalist service for acute pancreatitis. I did get a right upper quadrant ultrasound which came back unremarkable. We Continued with IV fluids and bowel rest. I did consult with Dr. Pathak who saw the patient continued conservative management. She tolerated diet well and was able to be discharged on 2016 with follow-up with her primary care physician as well as surgery. - Time Spent with Patient Total time spent providing and/or coordinating discharge services: Greater than 30 minutes - Constitutional Vitals: Temp Pulse Resp BP Pulse Ox 98.6 F 81 15 157/66 98 03/11/17 18:56 03/11/17 18:56 03/11/17 18:56 03/11/17 18:56 03/11/17 18:56 General appearance: Present: mild distress, A&O X 3 Exam: GEN: NAD CVS: RRR. S1, S2, No m/r/g RESP: CTAB ABD: Soft, NT, ND, +BS EXT: No edema. 2+ DP. No rashes NEURO: Nonfocal
[2017-03-12 10:07] VITALS: BP 190/78
== END 2017-03-12 11:44 | disposition home or self-care (01) | DRG 439 ==
LOC: EMEROO 19:05 → 3ANU 19:05
PROVIDERS: ADMIT Internal Medicine; ATTEND Internal Medicine

== ENCOUNTER 2017-07-30 19:54 | Inpatient (IN) ==
--- NOTE | 2017-07-30 20:12 | Emergency Department Note ---
Disposition Clinical Impression: Weakness Disposition: Still a Patient Condition: Good Referrals: Samir Chino Jr, MD [Primary Care Provider] - General Adult HPI - General Chief complaint: ED Weakness Stated complaint: Weakness Time Seen by Provider: 07/30/17 19:58 Source: patient, EMS Limitations: no limitations - History of Present Illness Pain Scale: 0 - Related Data Home Medications Medication Instructions Recorded Confirmed Citalopram Hydrobromide 20 mg PO DAILY 07/30/17 07/30/17 [Citalopram HBr] Clopidogrel [Plavix] 75 mg PO DAILY 07/30/17 07/30/17 Metoprolol [Lopressor] 25 mg PO DAILY 07/30/17 07/30/17 OxyCODONE/APAP 10/325 [Percocet 1 each PO BID 07/30/17 07/30/17 10/325 MG] Pravastatin Sodium [Pravachol] 40 mg PO HS 07/30/17 07/30/17 Allergies Allergy/AdvReac Type Severity Reaction Status Date / Time No Known Allergies Allergy Verified 05/05/15 23:14 Past Medical History - Past Medical History Medical history: Reports: arthritis, asthma, CVA, GERD, GI bleed, hyperlipidemia , hypertension, osteoporosis, TIA, other Surgical history: Reports: hysterectomy, orthopedic, other Psychiatric history: Reports: anxiety PRODUCTION GRADER history: Reports: no PRODUCTION GRADER history - Social History Smoking Status: Former smoker Smokeless Tobacco Status: No Alcohol use: Reports: none Drug use: Reports: none Physical Exam - General Limitations: no limitations General appearance: alert Course - Reevaluation(s) Reevaluation #1: Attestation Note I examined this patient and my medical decision-making was reviewed with the Resident Physician, ASTRID FELIX. I agree with the documented findings, disposition and treatment plan as described except to the extent set forth below. I have personally performed a face to face evaluation on this patient. I have reviewed and agree with the care plan. Briefly: 87-year-old female poor historian presented by EMS for generalized weakness for several weeks leg swelling getting worse with some oozing. No family members present at this time. Patient appears to have some baseline dementia but is not acutely altered. We will get Doppler pulses on her feet. With that appears to be chronic edema and chronic hyperpigmentation and skin changes on her bilateral tibias. Patient will undergo a laboratory and imaging. Disposition pending, however admission anticipated. Time: 20:11 Vital Signs Temperature 98.8 F 07/30/17 20:00 Pulse Rate 67 07/30/17 20:00 Respiratory Rate 16 07/30/17 20:00 Blood Pressure 106/81 07/30/17 20:00 O2 Sat by Pulse Oximetry 99 07/30/17 20:00 Temperature 98.8 F 07/30/17 20:00 Pulse Rate 67 07/30/17 20:00 Respiratory Rate 16 07/30/17 20:00 Blood Pressure 106/81 07/30/17 20:00 O2 Sat by Pulse Oximetry 99 07/30/17 20:00 Oxygen Delivery Oxygen Delivery Room Air
--- NOTE | 2017-07-30 20:22 | Emergency Department Note ---
Disposition Clinical Impression: Weakness, Hypokalemia, Failure to thrive in adult Disposition: Admitted As Inpatient Condition: Good Referrals: Samir Chino Jr, MD [Primary Care Provider] - Forms: ED Satisfaction Letter Weakness HPI - General Chief complaint: ED Weakness Stated complaint: Weakness Time Seen by Provider: 07/30/17 19:58 Source: patient, EMS Mode of arrival: EMS Limitations: no limitations Nursing Notes Reviewed: Yes Vital Signs Reviewed: Yes - History of Present Illness HPI Narrative: 87-year-old female presents to the ER via EMS due to concern for weakness. EMS reports she has had declining activity at home since February. Was recently admitted for pancreatitis. States that her appetite has been poor at home and family was concerned because she is eating as well. They report that she does live at home alone. Family is able to check in on her. The patient is alert and oriented 3 however she continues to perseverate on the fact that she did not know that she would be here and that she was in [place] yesterday. She voices no other complaints. Pt Subjective Complaint: generalized weakness/fatigue Onset (ago): unknown Migration: none Pain Severity: none Pain Scale: 0 Improves with: none Worsens with: none Associated symptoms: Reports: denies other symptoms - Related Data Home Medications Medication Instructions Recorded Confirmed Citalopram Hydrobromide 20 mg PO DAILY 07/30/17 07/30/17 [Citalopram HBr] Clopidogrel [Plavix] 75 mg PO DAILY 07/30/17 07/30/17 Metoprolol [Lopressor] 25 mg PO DAILY 07/30/17 07/30/17 OxyCODONE/APAP 10/325 [Percocet 1 each PO BID 07/30/17 07/30/17 10/325 MG] Pravastatin Sodium [Pravachol] 40 mg PO HS 07/30/17 07/30/17 Allergies Allergy/AdvReac Type Severity Reaction Status Date / Time No Known Allergies Allergy Verified 05/05/15 23:14 All systems ED: reviewed and negative except as stated. Constitutional: Denies: fever, chills Cardiovascular: Denies: chest pain Respiratory: Denies: dyspnea Gastrointestinal: Denies: abdominal pain, nausea, vomiting Past Medical History - Past Medical History Attestation: Yes The following information was validated with the patient. 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 TRADE ANALYST history - Social History Smoking Status: Former smoker Smokeless Tobacco Status: No Alcohol use: Reports: none Drug use: Reports: none Physical Exam - General Limitations: no limitations General appearance: alert, in no apparent distress - Head Head exam: atraumatic, normocephalic, normal inspection - Eye Eye exam: Present: normal appearance - ENT ENT exam: normal exam - Neck Neck exam: Present: normal inspection - Chest Chest inspection: Present: normal inspection, symmetric chest wall rise - Respiratory Respiratory exam: Present: normal lung sounds bilaterally - Cardiovascular Cardiovascular exam: Present: regular rate, normal rhythm, normal heart sounds - Abdominal Exam Abdominal exam: Present: soft, Non-Tender. Absent: tenderness, distention, rigidity - Extremities Exam Extremities exam: Present: normal inspection, full ROM - Expanded Upper Extremity Exam Shoulder exam: Present: normal inspection, full ROM Arm exam: Present: normal inspection, full ROM Elbow exam: Present: normal inspection, full ROM Forearm/Wrist exam: Present: normal inspection, full ROM Hand exam: Present: normal inspection, full ROM - Expanded Lower Extremity Exam Hip/Pelvis exam: Present: normal inspection, full ROM Upper leg exam: Present: normal inspection, full ROM Knee exam: Present: normal inspection, full ROM Lower leg exam: Present: normal inspection, full ROM, other (Chronic venous stasis changes to the bilateral lower extremities. Lymphedema of the feet. Dopplerable pulse bilaterally for posterior tibial) Ankle exam: Present: normal inspection, full ROM Foot/toe exam: Present: normal inspection, full ROM - Neurological Exam Neurological exam: Present: alert, oriented X3, other (GCS 14. Nonfocal.) - Skin Skin exam: Present: warm, dry Course Course Narrative: Patient seen and examined. Vital signs reviewed. We will get a CT scan of the head, EKG, overload, urinalysis. We will wait for family to get here and discuss their concerns as well. - Reevaluation(s) Reevaluation #1: Discussed results of imaging labs with the patient and family. Family at bedside reports that she has had poor appetite for the last month as well as worsening confusion at home. They are unable to take care of her at this time. We will discuss for admission. Vital Signs Temperature 98.8 F 07/30/17 20:00 Pulse Rate 67 07/30/17 20:00 Respiratory Rate 16 07/30/17 20:00 Blood Pressure 106/81 07/30/17 20:00 O2 Sat by Pulse Oximetry 99 07/30/17 20:00 Temperature 98.8 F 07/30/17 20:00 Pulse Rate 59 07/30/17 22:27 Respiratory Rate 16 07/30/17 22:27 Blood Pressure 108/51 07/30/17 22:27 O2 Sat by Pulse Oximetry 97 07/30/17 22:27 Oxygen Delivery Oxygen Delivery Room Air Weakness - MDM Narrative Medical decision making narrative: 87-year-old female with weakness as well as failure to thrive and worsening confusion. Family at bedside unable to care for her at home. She lives at home alone. Imaging labs reviewed here. No acute derangements aside from hyperkalemia which was replaced. Patient admitted to the hospitalist service. - Lab Data Lab results reviewed: Yes I reviewed the patient's lab results. Result diagrams: 07/30/17 20:19 07/30/17 20:19 Lab Results 07/30/17 07/30/17 07/30/17 Range/Units 20:19 20:19 20:19 WBC 8.1 (4.3-11.1) K/mcL RBC 3.02 L (3.82-4.97) M/mcL Hgb 9.6 L (11.5-15.4) g/dL Hct 28.7 L (35.3-44.9) % MCV 95.0 (83.0-100.0) fL MCH 31.8 (28.0-33.3) pg MCHC 33.4 (31.6-35.5) g/dL RDW 13.1 (11.5-14.5) % Plt Count 195 (140-400) K/mcL MPV 9.3 L (9.4-12.4) fL Immature Gran % 1.1 (0-4) % Seg Neutrophils % 60.8 % Lymphocytes % 27.0 % Monocytes % 10.1 % Eosinophils % 0.9 % Basophils % 0.1 % Neutrophils # 4.9 (1.6-8.9) K/mcL Lymphocytes # 2.2 (0.6-4.6) K/mcL Monocytes # 0.8 (0.0-1.3) K/mcL Eosinophils # 0.1 (0.0-0.6) K/mcL Basophils # 0.0 (0.0-0.2) K/mcL Nucleated RBCs/100 WBC 0.2 H (0) /100 WBC Sodium 135 L (136-145) mEq/L Potassium 2.8 L (3.5-5.1) mEq/L Chloride 104 (98-107) mEq/L Carbon Dioxide 25 (23-29) mEq/L BUN 15 (8-23) mg/dL Creatinine 0.70 (0.60-1.20) mg/dL Est GFR ( Amer) > 60 (> 60) Est GFR (Non-Af Amer) > 60 (> 60) BUN/Creatinine Ratio 21 (6-26) Glucose 111 H (70-105) mg/dL Calculated Osmolality 282 (280-300) Calcium 7.6 L (8.6-10.3) mg/dL Magnesium 2.0 (1.6-2.6) mg/dL Troponin I < 0.03 (< 0.04) ng/mL Lipase 127 H (11-82) Units/L TSH 1.566 (0.340-5.600) mcIU/mL Urine Color (Yellow) Urine Clarity (Clear) Urine pH (5.0-8.0) pH Units Ur Specific [place] (1.010-1.025) Urine Protein (Neg-Trace) mg/dL Urine Glucose (UA) (Normal) mg/dL Urine Ketones (Negative) mg/dL Urine Blood (Negative) Urine Nitrite (Negative) Urine Bilirubin (Negative) Urine Urobilinogen (Normal) mg/dL Ur Leukocyte Esterase (Negative) Urine Microscopic RBC (0-3) per hpf Urine Microscopic WBC (0-3) per hpf Ur Squamous Epith Cells (None-Few) per lpf Urine Bacteria (None-Few) per hpf Hyaline Casts (None-Few) per lpf Granular Casts (None Seen) per lpf Urine Yeast Ur Culture Indicated? (NO) 07/30/17 Range/Units 20:36 WBC (4.3-11.1) K/mcL RBC (3.82-4.97) M/mcL Hgb (11.5-15.4) g/dL Hct (35.3-44.9) % MCV (83.0-100.0) fL MCH (28.0-33.3) pg MCHC (31.6-35.5) g/dL RDW (11.5-14.5) % Plt Count (140-400) K/mcL MPV (9.4-12.4) fL Immature Gran % (0-4) % Seg Neutrophils % % Lymphocytes % % Monocytes % % Eosinophils % % Basophils % % Neutrophils # (1.6-8.9) K/mcL Lymphocytes # (0.6-4.6) K/mcL Monocytes # (0.0-1.3) K/mcL Eosinophils # (0.0-0.6) K/mcL Basophils # (0.0-0.2) K/mcL Nucleated RBCs/100 WBC (0) /100 WBC Sodium (136-145) mEq/L Potassium (3.5-5.1) mEq/L Chloride (98-107) mEq/L Carbon Dioxide (23-29) mEq/L BUN (8-23) mg/dL Creatinine (0.60-1.20) mg/dL Est GFR ( Amer) (> 60) Est GFR (Non-Af Amer) (> 60) BUN/Creatinine Ratio (6-26) Glucose (70-105) mg/dL Calculated Osmolality (280-300) Calcium (8.6-10.3) mg/dL Magnesium (1.6-2.6) mg/dL Troponin I (< 0.04) ng/mL Lipase (11-82) Units/L TSH (0.340-5.600) mcIU/mL Urine Color Yellow (Yellow) Urine Clarity Clear (Clear) Urine pH 5.5 (5.0-8.0) pH Units Ur Specific [place] 1.025 (1.010-1.025) Urine Protein 30 H (Neg-Trace) mg/dL Urine Glucose (UA) Normal (Normal) mg/dL Urine Ketones Negative (Negative) mg/dL Urine Blood Negative (Negative) Urine Nitrite Negative (Negative) Urine Bilirubin Negative (Negative) Urine Urobilinogen Normal (Normal) mg/dL Ur Leukocyte Esterase Small H (Negative) Urine Microscopic RBC 0-3 (0-3) per hpf Urine Microscopic WBC 15-30 H (0-3) per hpf Ur Squamous Epith Cells Many H (None-Few) per lpf Urine Bacteria None Seen (None-Few) per hpf Hyaline Casts Few (None-Few) per lpf Granular Casts Few H (None Seen) per lpf Urine Yeast Test Not Performed Ur Culture Indicated? NO. A (NO) - Radiology Data Radiology results reviewed: Yes I reviewed the patient's radiology results. Chest X-Ray 07/30/17 20:06 IMPRESSION: No acute process. D/ / Omid Arreola MD / Omid Arreola MD Interpreting Provider: Omid Arreola MD Head CT 07/30/17 20:06 IMPRESSION: No acute intracranial abnormality. Diffuse atrophic changes with findings suggesting chronic microvascular ischemia D/ / Omid Arreola MD / Omid Arreola MD Interpreting Provider: Omid Arreola MD - EKG Data EKG attestation: Yes I reviewed and interpreted this EKG. EKG results narrative: EKG demonstrates sinus rhythm with rate of 63 bpm. Normal axis. Normal intervals. Normal R-wave progression. No gross ST elevations or depressions. No acute ischemic findings. No significant changes from previous EKG dated. S.B.A.R. - S.B.A.R. Situation: Demographics, MOA Background: Presenting Complaint, Relevant PMH, Meds, & Allergies Assessment: Course and respsone to treatment, Exam Concerns, Patient/Family Expectation, Pertinant Lab Results Recommendation: Barrier(s) to disposition, Recommendation based on pending studies, treatments, or consults S.B.A.R. Report Given to: Dr. Segura
[2017-07-30 20:34] LABS: Basophils % 0.1 %; Eosinophils # 0.1 K/mcL (0.0-0.6); Eosinophils % 0.9 %; Hematocrit 28.7 % (35.3-44.9); Hemoglobin 9.6 g/dL (11.5-15.4); Immature Granulocytes % 1.1 % (0-4); Lymphocytes # 2.2 K/mcL (0.6-4.6); Mean Corpuscular HGB Conc 33.4 g/dL (31.6-35.5); Mean Corpuscular Hemoglobin 31.8 pg (28.0-33.3); Mean Platelet Volume 9.3 fL (9.4-12.4); Monocytes # 0.8 K/mcL (0.0-1.3); Monocytes % 10.1 %; Neutrophils # 4.9 K/mcL (1.6-8.9); Nucleated Red Blood Cells 0.2 /100 WBC (0); Platelet Count 195 K/mcL (140-400); Red Blood Count 3.02 M/mcL (3.82-4.97); Red Cell Distribution Width 13.1 % (11.5-14.5); Segmented Neutrophils % 60.8 %
[2017-07-30 20:44] LABS: Bilirubin,Urine Negative (Negative); Blood,Urine Negative (Negative); Clarity,Urine Clear (Clear); Color,Urine Yellow (Yellow); Glucose,Urine (UA) Normal (Normal); Ketones,Urine Negative (Negative); Leukocyte Esterase,Urine Small (Negative); Nitrite,Urine Negative (Negative); PH,Urine 5.5 pH Units (5.0-8.0); Protein,Urine 30 mg/dL (Neg-Trace); Specific Gravity,Urine 1.025 (1.010-1.025); Urobilinogen,Urine Normal (Normal)
[2017-07-30 20:46] LABS: Bacteria,Urine None Seen per hpf (None-Few); RBC,Urine 0-3 per hpf (0-3); Squamous Epithelial Cell,Urine Many per lpf (None-Few); WBC,Urine 15-30 per hpf (0-3)
[2017-07-30 20:54] LABS: BUN/Creatinine Ratio 21 (6-26); Blood Urea Nitrogen 15 mg/dL (8-23); Calcium 7.6 mg/dL (8.6-10.3); Carbon Dioxide 25 mEq/L (23-29); Chloride 104 mEq/L (98-107); Glucose 111 mg/dL (70-105); Osmolality,Calculated 282 (280-300); Potassium 2.8 mEq/L (3.5-5.1); Sodium 135 mEq/L (136-145); eGFR For African Americans > 60 (> 60); eGFR For Non-African Americans > 60 (> 60)
[2017-07-30 20:55] LABS: Granular Casts,Urine Few per lpf (None Seen); Hyaline Casts,Urine Few per lpf (None-Few)
[2017-07-30 20:55] LABS: Troponin I < 0.03 ng/mL (< 0.04)
[2017-07-30 21:08] LABS: Thyroid Stimulating Hormone 1.566 mcIU/mL (0.340-5.600)
[2017-07-31] MEDS ORDERED: Naloxone 0.4 MG/ML INJ IVP PRN (00:01)
[2017-07-31] MEDS ORDERED: Potassium Chloride 40 MEQ, Lidocaine 1% 2 ML in D5% in Water 500 ML IVPB ONE (00:06)
[2017-07-31] MEDS ORDERED: D5% in 0.45% NACL 1,000 ML IVC SCH (00:15)
--- NOTE | 2017-07-31 00:17 | Internal Med History&Physical ---
Date of Encounter: 07/30/17 Time of Encounter: 23:00 Internal Medicine - H&P: HPI Chief complaint: Weakness Admitted From: Home Plans for Post Hospital Care: Home History of present illness: Ms. Geronimo is a 87 year old female present to ER for generalized weakness. Past medical history is significant for hypertension, chronic back pain, pancreatitis. Patient has 3 episodes of pancreatitis previously. Patient has poor eating since last February and lost 85 pounds in last 5 months. Patient gets generalized weakness and deconditioning. Today, when patient's son called her and she did not answer the phone. Patient's son went to her home and find she is very weak and send her to the emergency room. Patient denies fever, abdominal pain, shortness of breath, nausea, dysuria/burning/urgency/increased the frequency. Patient also reported one episode of hallucination yesterday. In the emergency room, she was a found hypokalemia with potassium level 2.8. Lipase is slightly elevated. Patient was admitted for further management. When I saw patient, she is awake alert, oriented 3. She said she would like to try CPR for short period if cardiac arrest happens, full code is placed. Past Med Surg Social Fam HX - Past Medical History Medical history: arthritis, asthma, CVA, GERD, GI bleed, hyperlipidemia, hypertension, osteoporosis, TIA, other Psychiatric history: anxiety - Past Surgical History Surgical History: hysterectomy, orthopedic, other - Social History Smoking Status: Former smoker Smokeless Tobacco Status: No Alcohol use: none Drug use: none - Family History Mother History Unknown: Yes Internal Medicine - H&P: Meds Citalopram Hydrobromide [Citalopram HBr] 20 mg PO DAILY 07/30/17 [History] Clopidogrel [Plavix] 75 mg PO DAILY 07/30/17 [History] Metoprolol [Lopressor] 25 mg PO DAILY 07/30/17 [History] OxyCODONE/APAP 10/325 [Percocet 10/325 MG] 1 each PO BID 07/30/17 [History] Pravastatin Sodium [Pravachol] 40 mg PO HS 07/30/17 [History] 3 Allergy/AdvReac Type Severity Reaction Status Date / Time No Known Allergies Allergy Verified 05/05/15 23:14 All Systems PM: A 10-system review of systems was performed and is negative for pertinent findings except as documented above in the HPI. - Constitutional Vitals: Temp Pulse Resp BP Pulse Ox 98.8 F 59 14 135/74 97 07/30/17 20:00 07/30/17 22:27 07/30/17 23:28 07/30/17 23:28 07/30/17 22:27 General appearance: Present: cachectic, A&O X 3, no acute distress, answers questions appropriately - Head Head exam: Present: atraumatic, normocephalic - Eye Eye exam: Present: PERRL, conjuntiva pink, sclera anicteric Pupils: Present: PERRL - Neck Neck exam general surgery: Present: supple, trachea midline. Absent: lymphadenopathy - Respiratory Respiratory exam: Present: CTAB. Absent: accessory muscle use, rales, rhonchi, wheezes - Cardiovascular Cardiovascular exam: Present: RRR, +S1, +S2. Absent: diastolic murmur, gallop, rubs, systolic murmur - GI/Abdominal GI/Abdominal exam: Present: normal bowel sounds, soft, no peritoneal signs. Absent: distended, tenderness - Extremities Exam Extremities exam: Present: warm, radial pulses palpable and symmetrical. Absent : calf tenderness, cyanotic, pedal edema - Neurological Exam Neurological exam: Present: CN II-XII intact, oriented X3, no focal deficits. Absent: pronater drift, facial droop, speech deficit - Skin Skin exam: Present: dry, intact Internal Med - H&P Results - Labs CBC & Chem 7: 07/30/17 20:19 07/30/17 20:19 - Assessment and plan (1) Failure to thrive in adult Current Visit: Yes Status: Acute Assessment and plan: Patient has poor intake, significant body weight loss imposter several months. - Consider statistician consult for supplements when patient resumes diet. (2) Generalized weakness Current Visit: Yes Status: Acute Assessment and plan: Most likely due to malnutrition and hypokalemia. We will correct hypokalemia. PTOT evaluation for placement recommendation. (3) Hypokalemia Current Visit: Yes Status: Acute Assessment and plan: We will give potassium supplement. Closely monitor potassium level. (4) Acute on chronic pancreatitis Current Visit: No Status: Acute Assessment and plan: Patient has mild elevated lipase. Denies abdominal pain. History of pancreatitis. - We will place patient on nothing by mouth for tonight, follow-up the trend of lipase in a.m., may consider advance diet if lipase is not significantly increasing. - Symptomatic treatment as needed - IV fluid (5) DVT prophylaxis Current Visit: No Status: Acute Assessment and plan: EPCD. (6) Hypertension Current Visit: No Status: Chronic Assessment and plan: BP is not high at this point. Hold home BP medication and follow up blood pressure Qualifiers: Hypertension type: essential hypertension Qualified Code(s): I10 - Essential (primary) hypertension (7) Malnutrition Current Visit: Yes Status: Acute Assessment and plan: Due to poor intake. Consult dietitian for supplement. Qualifiers: Malnutrition type: protein-calorie malnutrition Protein-calorie malnutrition severity: severe Qualified Code(s): E43 - Unspecified severe protein-calorie malnutrition - Time Spent With Patient Total time spent is greater than 50% in coordination of care (as documented) at patient's floor/unit and/or counseling patient: 40 minutes Greater than 35 minutes
[2017-07-31 05:22] LABS: Basophils % 0.1 %; Eosinophils # 0.1 K/mcL (0.0-0.6); Eosinophils % 0.6 %; Hematocrit 29.6 % (35.3-44.9); Hemoglobin 9.8 g/dL (11.5-15.4); Immature Granulocytes % 0.8 % (0-4); Lymphocytes % 23.9 %; Mean Corpuscular HGB Conc 33.1 g/dL (31.6-35.5); Mean Corpuscular Hemoglobin 31.7 pg (28.0-33.3); Mean Corpuscular Volume 95.8 fL (83.0-100.0); Mean Platelet Volume 9.1 fL (9.4-12.4); Monocytes # 0.8 K/mcL (0.0-1.3); Monocytes % 9.4 %; Neutrophils # 5.5 K/mcL (1.6-8.9); Platelet Count 187 K/mcL (140-400); Red Blood Count 3.09 M/mcL (3.82-4.97); Red Cell Distribution Width 13.2 % (11.5-14.5); Segmented Neutrophils % 65.2 %
[2017-07-31 05:43] LABS: Chol/HDL Ratio 3.1 (0-4.9); Phosphorous 2.1 mg/dL (2.7-4.5)
[2017-07-31 05:46] LABS: Alanine Aminotransferase 22 Units/L (7-52); Albumin 2.3 g/dL (3.5-5.7); Alkaline Phosphatase 85 Units/L (34-104); Aspartate Amino Transferase 11 Units/L (13-39); BUN/Creatinine Ratio 19 (6-26); Bilirubin,Total 0.3 mg/dL (0.3-1.0); Blood Urea Nitrogen 13 mg/dL (8-23); Calcium 7.7 mg/dL (8.6-10.3); Carbon Dioxide 26 mEq/L (23-29); Chloride 107 mEq/L (98-107); Globulin 2.2 g/dL (2.4-3.5); Glucose 196 mg/dL (70-105); Osmolality,Calculated 288 (280-300); Sodium 136 mEq/L (136-145); Total Protein 4.5 g/dL (6.4-8.9); eGFR For African Americans > 60 (> 60); eGFR For Non-African Americans > 60 (> 60)
[2017-07-31] MEDS: D5% in 0.45% NACL 1,000 ML IVC SCH ×2 (11:09→14:45)
--- NOTE | 2017-07-31 13:15 | Electrocardiograph Report ---
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
--- NOTE | 2017-07-31 16:36 | Internal Med Progress Note ---
Date of Encounter: 07/31/17 Time of Encounter: 09:35 - Assessment and plan (1) Hypertension Current Visit: Yes Status: Chronic Assessment and plan: Blood pressure is well controlled. Continue home medications. Qualifiers: Hypertension type: essential hypertension Qualified Code(s): I10 - Essential (primary) hypertension (2) Generalized weakness Current Visit: Yes Status: Acute Assessment and plan: Most likely due to malnutrition, possible dehydration. Patient reports that she has been unable to get around in her home, or make food for herself. PT/OT consulted. Patient declined today, stating she does not feel like doing PT today. Continue monitor labs, vital signs, patient condition. Patient has mild chronic anemia, continue to follow. Encourage patient up to chair twice a day PT/OT, encourage participation. (3) Acute on chronic pancreatitis Current Visit: Yes Status: Acute Assessment and plan: Patient with history of pancreatitis 2. Patient has mildly elevated lipase. She denies pain, abdomen is nontender to palpation, she is able to tolerate fluids and clear liquids. Lipase decreased minimally, continue to monitor. Advance diet as tolerated. Continue gentle IV fluid hydration. (4) Hypokalemia Current Visit: Yes Status: Resolved Assessment and plan: Resolved. (5) Failure to thrive in adult Current Visit: Yes Status: Acute Assessment and plan: Poor po food and fluid intake, 85lb weight loss over 5 months. Pt lives at home alone and is unable to care for herself. PT/OT consulted, pt states that she did not feel like participating today. Pt noted to have difficulty feeding herself at lunch today. Nutrition consulted. (6) Malnutrition Current Visit: Yes Status: Acute Assessment and plan: Due to poor intake, weakness. Pt unable to care for herself or ambulate in home to make food. [employer] Missile Crewmember consulted, pending. Qualifiers: Malnutrition type: protein-calorie malnutrition Protein-calorie malnutrition severity: severe Qualified Code(s): E43 - Unspecified severe protein-calorie malnutrition (7) DVT prophylaxis Current Visit: Yes Status: Acute Assessment and plan: EPCD ordered. - Time Spent With Patient Total time spent is greater than 50% in coordination of care (as documented) at patient's floor/unit and/or counseling patient: less than 15 minutes - Subjective Interval history: Pt was seen and assessed at 9:35 AM. Primary nurse at bedside. Patient is drowsy, frail, poor historian. Patient states that she has lost approximately 85 pounds, states that she sees her son frequently, however he was not alarmed that she had lost weight. Patient does appear to be confused about sequence of events and states that she has been here for a week, she has only been here for 1 day. She is alert, but drowsy, oriented to place, year, and president. She denies nausea, vomiting, abdominal pain. She denies headache or blurred vision. - Constitutional Vitals: Temp Pulse Resp BP Pulse Ox 98.5 F 57 17 108/66 94 07/31/17 16:10 07/31/17 16:10 07/31/17 16:10 07/31/17 16:10 07/31/17 16:10 General appearance: Present: cachectic, cooperative, A&O X 3, pleasant, no acute distress, answers questions appropriately - Head Head exam: Present: atraumatic, normal inspection, normocephalic - Eye Eye exam: Present: normal appearance, conjuntiva pink, sclera anicteric - Neck Neck exam general surgery: Present: normal inspection, supple, trachea midline. Absent: lymphadenopathy, tenderness - Respiratory Respiratory exam: Present: CTAB. Absent: accessory muscle use, chest wall tenderness, rales, respiratory distress, rhonchi, wheezes - Cardiovascular Cardiovascular exam: Present: RRR, +S1, +S2. Absent: diastolic murmur, gallop, rubs, systolic murmur - GI/Abdominal GI/Abdominal exam: Present: normal bowel sounds, soft. Absent: distended, hepatomegaly, tenderness - Extremities Exam Extremities exam: Present: normal capillary refill, normal inspection, warm, radial pulses palpable and symmetrical. Absent: calf tenderness, cyanotic, pedal edema, tenderness - Neurological Exam Neurological exam: Present: alert, altered, oriented X3, no focal deficits. Absent: facial droop, speech deficit - Skin Skin exam: Present: dry, intact, normal color, warm. Absent: rash Internal Medicine: Result - Labs CBC & Chem 7: 07/31/17 04:56 07/31/17 04:56 Labs: Short CBC 07/31/17 Range/Units 04:56 WBC 8.4 (4.3-11.1) K/mcL Hgb 9.8 L (11.5-15.4) g/dL Hct 29.6 L (35.3-44.9) % Plt Count 187 (140-400) K/mcL Neutrophils # 5.5 (1.6-8.9) K/mcL BMP 07/31/17 04:56 Sodium 136 Potassium 4.0 D Chloride 107 Carbon Dioxide 26 BUN 13 Creatinine 0.70 Glucose 196 H Calcium 7.7 L Liver Function 07/31/17 Range/Units 04:56 Total Bilirubin 0.3 (0.3-1.0) mg/dL AST 11 L (13-39) Units/L ALT 22 (7-52) Units/L Alkaline Phosphatase 85 (34-104) Units/L Albumin 2.3 L (3.5-5.7) g/dL - VTE Documentation of Mechanical Device: Intermittent pneumatic compression device Consult Discharge Plan - Plan Referrals: Samir Chino Jr, MD [Primary Care Provider] -
[2017-07-31] MEDS: OXYCODONE Oral CONC 10 MG/0.5 ML ORAL.SYG SL PRN (22:57)
[2017-08-01] MEDS: Acetaminophen 325 MG TABLET PO PRN ×2 (02:58→10:54)
[2017-08-01 05:23] LABS: Basophils % 0.1 %; Eosinophils # 0.1 K/mcL (0.0-0.6); Eosinophils % 0.8 %; Hemoglobin 9.8 g/dL (11.5-15.4); Immature Granulocytes % 0.7 % (0-4); Lymphocytes % 28.6 %; Mean Corpuscular HGB Conc 32.7 g/dL (31.6-35.5); Mean Corpuscular Hemoglobin 31.1 pg (28.0-33.3); Mean Corpuscular Volume 95.2 fL (83.0-100.0); Mean Platelet Volume 9.4 fL (9.4-12.4); Monocytes # 0.8 K/mcL (0.0-1.3); Monocytes % 7.7 %; Neutrophils # 6.6 K/mcL (1.6-8.9); Platelet Count 222 K/mcL (140-400); Red Blood Count 3.15 M/mcL (3.82-4.97); Red Cell Distribution Width 13.5 % (11.5-14.5); Segmented Neutrophils % 62.1 %
[2017-08-01 05:43] LABS: BUN/Creatinine Ratio 12 (6-26); Blood Urea Nitrogen 6 mg/dL (8-23); Calcium 7.6 mg/dL (8.6-10.3); Carbon Dioxide 22 mEq/L (23-29); Chloride 109 mEq/L (98-107); Glucose 101 mg/dL (70-105); Lipase 134 Units/L (11-82); Osmolality,Calculated 280 (280-300); Potassium 3.9 mEq/L (3.5-5.1); Sodium 136 mEq/L (136-145); eGFR For African Americans > 60 (> 60); eGFR For Non-African Americans > 60 (> 60)
[2017-08-01] MEDS: OXYCODONE Oral CONC 10 MG/0.5 ML ORAL.SYG SL PRN (07:45)
[2017-08-01] MEDS: D5% in 0.45% NACL 1,000 ML IVC SCH (07:45)
--- NOTE | 2017-08-01 13:48 | Internal Med Progress Note ---
Date of Encounter: 08/01/17 Time of Encounter: 13:48 - Assessment and plan (1) Generalized weakness Current Visit: Yes Status: Acute Assessment and plan: Persistent generalized weakness ongoing and progressing since February 2017. Etiology unclear, most likely secondary to malnutrition and dehydration. Patient reports that since February she has had a decline in functional capacity and was not able to take care of herself. PTOT consult, recommendations for SNF placement for rehabilitation, patient in agreement Continue to monitor labs and vital signs. Encourage patient up to chair with meals and to participate in PT/OT Referral packet sent to [facility] (2) Failure to thrive in adult Current Visit: Yes Status: Acute Assessment and plan: Decline in functional capacity, 70-80 pound weight loss since February 2017. Pt lives at home alone and is unable to care for herself; PTOT has seen and recommended SNF for rehabilitation. (3) Malnutrition Current Visit: Yes Status: Acute Assessment and plan: Due to poor oral intake Nutrition services consulted for dietary supplementation Qualifiers: Malnutrition type: protein-calorie malnutrition Protein-calorie malnutrition severity: severe Qualified Code(s): E43 - Unspecified severe protein-calorie malnutrition (4) Hypertension Current Visit: Yes Status: Chronic Assessment and plan: Blood pressure is stable, continue anti-HTN medications. Qualifiers: Hypertension type: essential hypertension Qualified Code(s): I10 - Essential (primary) hypertension (5) Acute on chronic pancreatitis Current Visit: Yes Status: Acute Assessment and plan: Patient has had recurrent pancreatitis 2 events. MRI of abdomen in February 2017 reveals T2 hyperintense lesions scattered throughout the body and tail of the pancreas. At that time is recommended the patient have a follow-up MRI with and without contrast, due to weight loss and current clinical condition there is some concern for metastatic disease. Presently, she is denying any abdominal pain, abdomen is nontender to palpation , continues to deny N/V and she is able to tolerate fluids and clear liquids. She has acute pancreatitis at this time. Patient has mildly elevated lipase since admission today's lipase being 134 Continue to monitor lipase; should lipase increase and/or nausea and vomiting develop as well as abdominal pain, consider making patient nothing by mouth. Advance diet as tolerated. Continue gentle IV fluid hydration MRI of abdomen with and without contrast for further evaluation of pancreatic mass seen in February-2017 scans (6) Hypokalemia Current Visit: Yes Status: Resolved Assessment and plan: Resolved. Continue to monitor potassium (7) DVT prophylaxis Current Visit: Yes Status: Acute Assessment and plan: EPCD ordered. - Time Spent With Patient Total time spent is greater than 50% in coordination of care (as documented) at patient's floor/unit and/or counseling patient: 25 - 35 minutes - Subjective Interval history: Patient initially admitted for severe weakness, weight loss, malnutrition; failure to thrive. He continues to endorse generalized weakness, reporting that her appetite has been poor since February 2017 does not improve since. Additionally, she is reporting significant weight loss since that time reporting losing approximately 70-80 pounds. - Constitutional Vitals: Temp Pulse Resp BP Pulse Ox 98.8 F 76 16 130/80 97 08/01/17 10:48 08/01/17 10:48 08/01/17 10:48 08/01/17 10:48 08/01/17 10:48 General appearance: Present: cachectic, cooperative, A&O X 3, pleasant, no acute distress, underweight, loss of weight, answers questions appropriately - Head Head exam: Present: atraumatic, normocephalic - Eye Eye exam: Present: PERRL, conjuntiva pink, sclera anicteric Pupils: Present: PERRL - Neck Neck exam general surgery: Present: supple, trachea midline. Absent: lymphadenopathy - Respiratory Respiratory exam: Present: CTAB. Absent: accessory muscle use, rales, rhonchi, wheezes - Cardiovascular Cardiovascular exam: Present: RRR, +S1, +S2. Absent: diastolic murmur, gallop, rubs, systolic murmur - GI/Abdominal GI/Abdominal exam: Present: normal bowel sounds, soft, no peritoneal signs. Absent: distended, tenderness - Extremities Exam Extremities exam: Present: warm, radial pulses palpable and symmetrical. Absent : calf tenderness, cyanotic, pedal edema - Neurological Exam Neurological exam: Present: CN II-XII intact, oriented X3, no focal deficits. Absent: pronater drift, facial droop, speech deficit - Skin Skin exam: Present: dry, intact Internal Medicine: Result - Labs CBC & Chem 7: 08/01/17 04:51 08/01/17 04:51 Labs: Short CBC 08/01/17 Range/Units 04:51 WBC 10.6 (4.3-11.1) K/mcL Hgb 9.8 L (11.5-15.4) g/dL Hct 30.0 L (35.3-44.9) % Plt Count 222 (140-400) K/mcL Neutrophils # 6.6 (1.6-8.9) K/mcL BMP 08/01/17 04:51 Sodium 136 Potassium 3.9 Chloride 109 H Carbon Dioxide 22 L BUN 6 L Creatinine 0.52 L Glucose 101 Calcium 7.6 L - VTE Documentation of Mechanical Device: Intermittent pneumatic compression device Consult Discharge Plan - Plan Referrals: Samir Chino Jr, MD [Primary Care Provider] -
[2017-08-01] MEDS ORDERED: Gadolinium Contrast Agent (WT Based) IV PRN (16:45)
[2017-08-02 06:12] LABS: Basophils % 0.2 %; Eosinophils # 0.2 K/mcL (0.0-0.6); Eosinophils % 1.2 %; Hematocrit 31.3 % (35.3-44.9); Hemoglobin 10.5 g/dL (11.5-15.4); Immature Granulocytes % 0.8 % (0-4); Lymphocytes # 3.1 K/mcL (0.6-4.6); Mean Corpuscular HGB Conc 33.5 g/dL (31.6-35.5); Mean Corpuscular Volume 95.4 fL (83.0-100.0); Mean Platelet Volume 9.4 fL (9.4-12.4); Monocytes # 0.6 K/mcL (0.0-1.3); Monocytes % 5.2 %; Neutrophils # 8.4 K/mcL (1.6-8.9); Platelet Count 285 K/mcL (140-400); Red Blood Count 3.28 M/mcL (3.82-4.97); Red Cell Distribution Width 13.3 % (11.5-14.5); Segmented Neutrophils % 67.6 %
[2017-08-02 06:29] LABS: BUN/Creatinine Ratio 10 (6-26); Blood Urea Nitrogen 6 mg/dL (8-23); Calcium 7.9 mg/dL (8.6-10.3); Carbon Dioxide 21 mEq/L (23-29); Chloride 113 mEq/L (98-107); Glucose 85 mg/dL (70-105); Osmolality,Calculated 289 (280-300); Potassium 4.2 mEq/L (3.5-5.1); Sodium 141 mEq/L (136-145); eGFR For African Americans > 60 (> 60); eGFR For Non-African Americans > 60 (> 60)
--- NOTE | 2017-08-02 14:46 | Internal Med Progress Note ---
Date of Encounter: 08/02/17 Time of Encounter: 14:45 - Assessment and plan (1) Generalized weakness Current Visit: Yes Status: Acute Assessment and plan: Persistent generalized weakness ongoing and progressing since February 2017. Etiology unclear, most likely secondary to malnutrition and dehydration. Patient reports that since February she has had a decline in functional capacity and was not able to take care of herself. PT/OT seeing patient and recommended SNF placement. Patient should discharged tomorrow to [facility] for rehabilitation. government services professional and direct care provider on board, [facility] has accepted the patient. Remain stable throughout the stay without any complications. Hospital course uneventful. Continue to monitor labs and vital signs. Encourage patient up to chair with meals and to participate in PT/OT Will need ECF discharge referral (2) Failure to thrive in adult Current Visit: Yes Status: Acute Assessment and plan: Decline in functional capacity, poor oral intake, 70-80 pound weight loss since February 2017. Pt lives at home alone and is unable to care for herself; PT/OT has seen and recommended SNF for rehabilitation Nutrition services on board; meal supplementation with Ensure (3) Malnutrition Current Visit: Yes Status: Acute Assessment and plan: Due to poor oral intake Nutrition services consulted for dietary supplementation Patient started on Ensure with meals Qualifiers: Malnutrition type: protein-calorie malnutrition Protein-calorie malnutrition severity: severe Qualified Code(s): E43 - Unspecified severe protein-calorie malnutrition (4) Hypertension Current Visit: Yes Status: Chronic Assessment and plan: Blood pressure has remained stable throughout the stay, continue anti-HTN medications. Qualifiers: Hypertension type: essential hypertension Qualified Code(s): I10 - Essential (primary) hypertension (5) Acute on chronic pancreatitis Current Visit: Yes Status: Acute Assessment and plan: Patient has had 2 episodes of acute pancreatitis. Lipase continues to be elevated today at 167., Continues to deny nausea, vomiting, abdominal pain. Abdomen nontender and nonacute. Prior MRI MRI of abdomen in February 2017 reveals T2 hyperintense lesions scattered throughout the body and tail of the pancreas. This was concerning for possible metastatic lesion in addition to concerning clinical presentation of weight loss, weakness and fatigue. Follow-up MRI today completed with no acute findings. Continue to monitor lipase; Patient tolerating diet well without nausea, vomiting or abdominal pain Continue gentle IV fluid hydration (6) Hypokalemia Current Visit: Yes Status: Resolved Assessment and plan: Resolved. Continue to monitor potassium (7) DVT prophylaxis Current Visit: Yes Status: Acute Assessment and plan: Continue EPCD's - Time Spent With Patient Total time spent is greater than 50% in coordination of care (as documented) at patient's floor/unit and/or counseling patient: 25 - 35 minutes - Subjective Interval history: Patient initially admitted for severe weakness, weight loss, malnutrition; failure to thrive. Continues to have generalized weakness and poor appetite. - Constitutional Vitals: Temp Pulse Resp BP Pulse Ox 98.5 F 58 16 144/80 90 08/02/17 14:32 08/02/17 14:32 08/02/17 14:32 08/02/17 14:32 08/02/17 14:32 General appearance: Present: cachectic, cooperative, A&O X 3, pleasant, no acute distress, underweight, loss of weight, answers questions appropriately - Head Head exam: Present: atraumatic, normocephalic - Eye Eye exam: Present: PERRL, conjuntiva pink, sclera anicteric Pupils: Present: PERRL - Neck Neck exam general surgery: Present: supple, trachea midline. Absent: lymphadenopathy - Respiratory Respiratory exam: Present: CTAB. Absent: accessory muscle use, rales, rhonchi, wheezes - Cardiovascular Cardiovascular exam: Present: RRR, +S1, +S2. Absent: diastolic murmur, gallop, rubs, systolic murmur - GI/Abdominal GI/Abdominal exam: Present: normal bowel sounds, soft, no peritoneal signs. Absent: distended, tenderness - Extremities Exam Extremities exam: Present: warm, radial pulses palpable and symmetrical. Absent : calf tenderness, cyanotic, pedal edema - Neurological Exam Neurological exam: Present: CN II-XII intact, oriented X3, no focal deficits. Absent: pronater drift, facial droop, speech deficit - Skin Skin exam: Present: dry, intact Internal Medicine: Result - Labs CBC & Chem 7: 08/02/17 05:15 08/02/17 05:15 Labs: Short CBC 08/02/17 Range/Units 05:15 WBC 12.4 H (4.3-11.1) K/mcL Hgb 10.5 L (11.5-15.4) g/dL Hct 31.3 L (35.3-44.9) % Plt Count 285 (140-400) K/mcL Neutrophils # 8.4 (1.6-8.9) K/mcL BMP 08/02/17 05:15 Sodium 141 Potassium 4.2 Chloride 113 H Carbon Dioxide 21 L BUN 6 L Creatinine 0.59 L Glucose 85 Calcium 7.9 L - Impressions Impressions Abdomen MRI 08/02/17 16:45 IMPRESSION: Interval improvement in inflammatory change involving the pancreas. 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 This can be followed up in 2 years and is stable no further imaging needed. D/ / Fannie Lockwood MD / Fannie Lockwood MD Interpreting Provider: Fannie Lockwood MD - VTE Documentation of Mechanical Device: Intermittent pneumatic compression device Consult Discharge Plan - Plan Referrals: Samir Chino Jr, MD [Primary Care Provider] -
[2017-08-02] MEDS: OXYCODONE Oral CONC 10 MG/0.5 ML ORAL.SYG SL PRN (15:29)
[2017-08-03 06:29] LABS: BUN/Creatinine Ratio 13 (6-26); Blood Urea Nitrogen 8 mg/dL (8-23); Calcium 7.9 mg/dL (8.6-10.3); Carbon Dioxide 21 mEq/L (23-29); Chloride 107 mEq/L (98-107); Glucose 87 mg/dL (70-105); Osmolality,Calculated 278 (280-300); Potassium 3.9 mEq/L (3.5-5.1); Sodium 135 mEq/L (136-145); eGFR For African Americans > 60 (> 60); eGFR For Non-African Americans > 60 (> 60)
[2017-08-03] MEDS: OXYCODONE Oral CONC 10 MG/0.5 ML ORAL.SYG SL PRN (09:12)
[2017-08-03 12:02] LABS: Hematocrit 28.6 % (35.3-44.9); Hemoglobin 9.5 g/dL (11.5-15.4); Mean Corpuscular HGB Conc 33.2 g/dL (31.6-35.5); Mean Corpuscular Hemoglobin 30.7 pg (28.0-33.3); Mean Corpuscular Volume 92.6 fL (83.0-100.0); Mean Platelet Volume 9.8 fL (9.4-12.4); Platelet Count 306 K/mcL (140-400); Red Blood Count 3.09 M/mcL (3.82-4.97); Red Cell Distribution Width 13.6 % (11.5-14.5)
[2017-08-03 12:05] LABS: Lymphocytes # 4.9 K/mcL (0.6-4.6); Neutrophils # 7.3 K/mcL (1.6-8.9)
[2017-08-03 12:06] LABS: Platelet Estimate Normal (Normal)
[2017-08-03 12:08] LABS: Acanthocytes 1+ (Not Present)
--- NOTE | 2017-08-03 16:33 | Internal Med Progress Note ---
Date of Encounter: 08/03/17 Time of Encounter: 16:30 - Assessment and plan (1) Generalized weakness Current Visit: Yes Status: Acute Assessment and plan: Persistent generalized weakness ongoing and progressing since February 2017. Etiology unclear, most likely secondary to malnutrition and dehydration. Patient reports that since February she has had a decline in functional capacity and was not able to take care of herself. PT/OT seeing patient and recommended SNF placement. Lantus to discharge to [facility] rehabilitation, however patient is refusing to go to [facility] at this time and wishing to go home instead. Remain stable throughout the stay without any complications. Hospital course uneventful. Continue to monitor labs and vital signs. Encourage patient up to chair with meals and to participate in PT/OT Will need ECF discharge referral if she decides to go to ECF upon discharge (2) Failure to thrive in adult Current Visit: Yes Status: Acute Assessment and plan: Decline in functional capacity, poor oral intake, 70-80 pound weight loss since February 2017. Pt lives at home alone and is unable to care for herself; PT/OT has seen and recommended SNF for rehabilitation however, patient does not wish to go to [facility]. She has been approved for [facility] and was originally agreeable to go, however as of today she no longer wishes to go to [facility]. Nutrition services on board; meal supplementation with Ensure (3) Malnutrition Current Visit: Yes Status: Acute Assessment and plan: Due to poor oral intake Nutrition services consulted for dietary supplementation Continue Ensure with meals and encourage the patient to increase nutritional intake Qualifiers: Malnutrition type: protein-calorie malnutrition Protein-calorie malnutrition severity: severe Qualified Code(s): E43 - Unspecified severe protein-calorie malnutrition (4) Hypertension Current Visit: Yes Status: Chronic Assessment and plan: stable throughout the stay, continue anti-HTN medications and closely monitor. Qualifiers: Hypertension type: essential hypertension Qualified Code(s): I10 - Essential (primary) hypertension (5) Acute on chronic pancreatitis Current Visit: Yes Status: Acute Assessment and plan: Patient has had 2 episodes of acute pancreatitis. Lipase continues to be elevated today at 167., Continues to deny nausea, vomiting, abdominal pain. Abdomen nontender and nonacute. Prior MRI MRI of abdomen in February 2017 reveals T2 hyperintense lesions scattered throughout the body and tail of the pancreas. This was concerning for possible metastatic lesion in addition to concerning clinical presentation of weight loss, weakness and fatigue. Follow-up MRI today completed with no acute findings. Continue to monitor lipase; increasing today, but MRI shows improving inflammation Patient tolerating diet well without nausea, vomiting or abdominal pain Continue gentle IV fluid hydration (6) Hypokalemia Current Visit: Yes Status: Resolved Assessment and plan: Resolved. Continue to monitor potassium (7) DVT prophylaxis Current Visit: Yes Status: Acute Assessment and plan: Patient on EPCD's, continue, increase activity - Time Spent With Patient Total time spent is greater than 50% in coordination of care (as documented) at patient's floor/unit and/or counseling patient: Greater than 35 minutes - Subjective Interval history: Patient initially admitted for severe weakness, weight loss, malnutrition; failure to thrive. Continues to have generalized weakness and poor appetite. Reporting she is feeling a little nauseous today, no vomiting. Denies any abdominal pain and/or tenderness upon palpation. Concerning as the patient has a recurrent history of pancreatitis. Also of note lipase is continuing to increase today. - Constitutional Vitals: Temp Pulse Resp BP Pulse Ox 97.6 F 110 17 150/86 100 08/03/17 14:55 08/03/17 14:55 08/03/17 14:55 08/03/17 14:55 08/03/17 14:55 General appearance: Present: cachectic, cooperative, A&O X 3, pleasant, no acute distress, underweight, loss of weight, answers questions appropriately - Head Head exam: Present: atraumatic, normocephalic - Eye Eye exam: Present: PERRL, conjuntiva pink, sclera anicteric Pupils: Present: PERRL - Neck Neck exam general surgery: Present: supple, trachea midline. Absent: lymphadenopathy - Respiratory Respiratory exam: Present: CTAB. Absent: accessory muscle use, rales, rhonchi, wheezes - Cardiovascular Cardiovascular exam: Present: RRR, +S1, +S2. Absent: diastolic murmur, gallop, rubs, systolic murmur - GI/Abdominal GI/Abdominal exam: Present: normal bowel sounds, soft, no peritoneal signs. Absent: distended, tenderness - Extremities Exam Extremities exam: Present: warm, radial pulses palpable and symmetrical. Absent : calf tenderness, cyanotic, pedal edema - Neurological Exam Neurological exam: Present: CN II-XII intact, oriented X3, no focal deficits. Absent: pronater drift, facial droop, speech deficit - Skin Skin exam: Present: dry, intact Internal Medicine: Result - Labs CBC & Chem 7: 08/03/17 06:37 08/03/17 04:47 Labs: Short CBC 08/03/17 Range/Units 06:37 WBC 12.2 H (4.3-11.1) K/mcL Hgb 9.5 L (11.5-15.4) g/dL Hct 28.6 L (35.3-44.9) % Plt Count 306 (140-400) K/mcL Neutrophils # 7.3 (1.6-8.9) K/mcL BMP 08/03/17 04:47 Sodium 135 L Potassium 3.9 Chloride 107 Carbon Dioxide 21 L BUN 8 Creatinine 0.60 Glucose 87 Calcium 7.9 L - Impressions MRI abdomen Interval improvement in inflammatory change involving the pancreas. 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 This can be followed up in 2 years and is stable no further imaging needed. - VTE Documentation of Mechanical Device: Intermittent pneumatic compression device Consult Discharge Plan - Plan Referrals: Samir Chino Jr, MD [Primary Care Provider] -
[2017-08-03] MEDS: 0.9 % Sodium Chloride 1,000 ML IVC SCH (17:19)
[2017-08-04] MEDS: 0.9 % Sodium Chloride 1,000 ML IVC SCH (02:47)
[2017-08-04 06:51] LABS: BUN/Creatinine Ratio 17 (6-26); Blood Urea Nitrogen 9 mg/dL (8-23); Calcium 7.6 mg/dL (8.6-10.3); Carbon Dioxide 22 mEq/L (23-29); Chloride 114 mEq/L (98-107); Glucose 95 mg/dL (70-105); Lipase 222 Units/L (11-82); Osmolality,Calculated 288 (280-300); Potassium 3.9 mEq/L (3.5-5.1); Sodium 140 mEq/L (136-145); eGFR For African Americans > 60 (> 60); eGFR For Non-African Americans > 60 (> 60)
--- NOTE | 2017-08-04 08:21 | Discharge Summary ---
- NOTES TO OUTPATIENT PROVIDER Notes to Outpatient Provider: Patient seen and admitted for generalized weakness , found to be failure to thrive. Reporting significant weight loss. With weight loss and recurrent pancreatitis as well as mild abdominal pain and nausea during stay the patient was worked up for pancreatitis and found to be negative. MRI of abdomen showed improving inflammation of the pancreas. Follow -up on plasma electrophoresis results. With continued weakness and failure to thrive the patient was recommended to go to SNF upon discharge however, she has refused and wishes to discharge home. Orders not resulted at time of discharge: Pending orders 08/02/17 16:15 Protein Electrophoresis Routine Date of Encounter: 08/04/17 Time of Encounter: 08:19 - Discharge Diagnosis (1) Generalized weakness Priority: Primary Status: Acute Assessment and Plan: Persistent generalized weakness ongoing and progressing since February 2017. Etiology unclear, most likely secondary to malnutrition and dehydration. Patient reports that since February she has had a decline in functional capacity and was not able to take care of herself. Patient appears to have failure to thrive. Patient was seen and evaluated by PT OT with recommendations for SNF placement. Plan is for discharge to [facility] for rehabilitation, initially the patient was refusing to go to [facility] instead wishing to go home. However, the patient does appear to be confused. Son and daughter at bedside reporting that the patient was recently diagnosed with dementia. It is my opinion the patient is a high risk for fall/injury and/or further functional decline and/or decrease in overall well-being if she is discharged home to her own capacity. High-grade with PT/OT, son and daughter who help provide care for her that the patient would benefit from short-term rehabilitation. This was discussed with patient, son/daughter and all parties are in agreement to go to [facility] for short-term rehabilitation. She has remained stable throughout the stay without any complications. Hospital course is been uneventful. Patient medically stable for discharge today. She has been instructed to return to the ED should symptoms worsen. (2) Failure to thrive in adult Priority: Secondary Status: Acute Assessment and Plan: See plan above (3) Malnutrition Priority: Secondary Status: Acute Assessment and Plan: Due to poor oral intake encourage the patient to increase nutritional intake and drink Ensure with meals Qualifiers: Malnutrition type: protein-calorie malnutrition Protein-calorie malnutrition severity: severe Qualified Code(s): E43 - Unspecified severe protein-calorie malnutrition (4) Hypertension Priority: Secondary Status: Chronic Assessment and Plan: stable throughout the stay, continue anti-HTN medications at discharge Qualifiers: Hypertension type: essential hypertension Qualified Code(s): I10 - Essential (primary) hypertension (5) Acute on chronic pancreatitis Priority: Secondary Status: Acute Assessment and Plan: 2 prior episodes of acute pancreatitis, f/u MRI of abdomen shows improving inflammation of the pancreas. This was completed as a follow-up to prior MRI which showed suspicious nodules and the patient was having weight loss. These are no longer evident. Lipase chronically elevated. Continues to deny nausea, vomiting, abdominal pain. Abdomen nontender and nonacute. Patient tolerating diet well without nausea, vomiting or abdominal pain Continue gentle IV fluid hydration (6) Hypokalemia Priority: Secondary Status: Resolved (7) DVT prophylaxis Priority: Secondary Status: Acute Hospital course: Ms. Geronimo is a 87 year old female Persistent generalized weakness ongoing and progressing since February 2017. Etiology unclear, most likely secondary to malnutrition and dehydration. Patient reports that since February she has had a decline in functional capacity and was not able to take care of herself. Patient appears to have failure to thrive. Patient was seen and evaluated by PT OT with recommendations for SNF placement. Plan is for discharge to [facility] for rehabilitation, initially the patient was refusing to go to [facility] instead wishing to go home. However, the patient does appear to be confused. Son and daughter at bedside reporting that the patient was recently diagnosed with dementia. It is my opinion the patient is a high risk for fall/injury and/or further functional decline and/or decrease in overall well-being if she is discharged home to her own capacity. High-grade with PT/OT, son and daughter who help provide care for her that the patient would benefit from short-term rehabilitation. This was discussed with patient, son/daughter and all parties are in agreement to go to [facility] for short-term rehabilitation. She has remained stable throughout the stay without any complications. Hospital course is been uneventful. Patient medically stable for discharge today. She has been instructed to return to the ED should symptoms worsen. Discharge discussed with: patient, family, nurse, social work, case management - Time Spent with Patient Total time spent providing and/or coordinating discharge services: Greater than 30 minutes - Discharge Medications Prescriptions: OXYCODONE Oral CONC [Oxycodone Oral Conc] 5 mg SL Q6HR PRN 7 Days #7 oral.syg PRN Reason: Pain Home Medications: Citalopram Hydrobromide [Citalopram HBr] 20 mg PO DAILY 07/30/17 [History] Clopidogrel [Plavix] 75 mg PO DAILY 07/30/17 [History] OxyCODONE/APAP 10/325 [Percocet 10/325 MG] 1 each PO BID 07/30/17 [History] Pravastatin Sodium [Pravachol] 40 mg PO HS 07/30/17 [History] Metoprolol Succinate [Toprol Xl] 50 mg PO DAILY 07/31/17 [History] OXYCODONE Oral CONC [Oxycodone Oral Conc] 5 mg SL Q6HR PRN 7 Days #7 oral.syg [Rx] Allergies/Adverse Reactions: 3 Allergy/AdvReac Type Severity Reaction Status Date / Time baclofen Allergy Weakness Verified 07/31/17 11:24 Date of admission: 07/31/17 00:01 Primary care physician: Samir Chino Jr, MD Consults: 07/31/17 00:07 consult to supermarket manager [Consult to Nutrition] [CONS] Routine Comment: Consulting Provider: NUTRITION Reason for Dietary Consult: PO Supplementation 07/31/17 00:08 Consult to Cleaning And Maintenance Worker [CONS] Routine Reason for SW Consult: General deconditioning, placement issue Discharging clinician: Manoj Daniel Anticipated date of discharge: 08/04/17 - Constitutional Vitals: Temp Pulse Resp BP Pulse Ox 98.4 F 82 16 135/80 95 08/04/17 07:47 08/04/17 07:47 08/04/17 07:47 08/04/17 07:47 08/04/17 07:47 General appearance: Present: cachectic, cooperative, A&O X 3, pleasant, no acute distress, underweight, loss of weight, answers questions appropriately Exam: Mild intermittent confusion, secondary to dementia - Head Head exam: Present: atraumatic, normocephalic - Eye Eye exam: Present: PERRL, conjuntiva pink, sclera anicteric Pupils: Present: PERRL - Neck Neck exam general surgery: Present: supple, trachea midline. Absent: lymphadenopathy - Respiratory Respiratory exam: Present: CTAB. Absent: accessory muscle use, rales, rhonchi, wheezes - Cardiovascular Cardiovascular exam: Present: RRR, +S1, +S2. Absent: diastolic murmur, gallop, rubs, systolic murmur - GI/Abdominal GI/Abdominal exam: Present: normal bowel sounds, soft, no peritoneal signs. Absent: distended, tenderness - Extremities Exam Extremities exam: Present: warm, radial pulses palpable and symmetrical. Absent : calf tenderness, cyanotic, pedal edema - Neurological Exam Neurological exam: Present: CN II-XII intact, oriented X3, no focal deficits. Absent: pronater drift, facial droop, speech deficit - Skin Skin exam: Present: dry, intact - Patient Status Disposition: Transfer SNF Condition: Good Overall status at discharge: patient is progressing back to baseline - Discharge Instructions Follow Up With: Samir Chino Jr, MD [Primary Care Provider] - - Diet and Activity Activity: as per physical therapy, increase activity as tolerated Diet: advance to your usual diet - VTE Documentation of Mechanical Device: Intermittent pneumatic compression device
[2017-08-04 11:51] VITALS: BP 143/68
--- NOTE | 2017-08-04 14:05 | Physician Discharge Referral ---
ExtendedCare Referral Info Transfer To: [facility] Provider in Charge after Transfer: PCP, Other (Facility provider) Institutional Level of Care: Skilled - Diagnosis (1) Generalized weakness Priority: Primary Status: Acute (2) Failure to thrive in adult Priority: Secondary Status: Acute (3) Malnutrition Priority: Secondary Status: Acute (4) Hypertension Priority: Secondary Status: Chronic (5) Acute on chronic pancreatitis Priority: Secondary Status: Chronic (6) Hypokalemia Priority: Secondary Status: Resolved (7) DVT prophylaxis Priority: Secondary Status: Chronic Prognosis: Fair Aware of Diagnosis: Patient, Family Aware of Prognosis: Patient, Family - Transfer Medications Prescriptions: OXYCODONE Oral CONC [Oxycodone Oral Conc] 5 mg SL Q6HR PRN 7 Days #7 oral.syg PRN Reason: Pain Home Medications: Citalopram Hydrobromide [Citalopram HBr] 20 mg PO DAILY 07/30/17 [History] Clopidogrel [Plavix] 75 mg PO DAILY 07/30/17 [History] OxyCODONE/APAP 10/325 [Percocet 10/325 MG] 1 each PO BID 07/30/17 [History] Pravastatin Sodium [Pravachol] 40 mg PO HS 07/30/17 [History] Metoprolol Succinate [Toprol Xl] 50 mg PO DAILY 07/31/17 [History] OXYCODONE Oral CONC [Oxycodone Oral Conc] 5 mg SL Q6HR PRN 7 Days #7 oral.syg [Rx] Allergies/Adverse Reactions: 3 Allergy/AdvReac Type Severity Reaction Status Date / Time baclofen Allergy Weakness Verified 07/31/17 11:24 - Respiratory Orders Oxygen / L per min Smoking Cessation: Smoking cessation has been advised. For more information, call the [place] Tobacco Quit Line at 7-581-EPYP-NOW. - Advance Directives Code Status: Full Code - Mobility Orders Ambulate - Rehabiliation Orders Rehab Potential: Fair Rehab Orders: ROM Exercises, Evaluation for Physical Therapy, Evaluation for Occupational Therapy - Diet Orders Regular CERTIFICATION: I certify that the transfer of the above named patient to an Extended Care Facility is necessary for the continuing treatment of the diagnosis listed. The above information is true and accurate reflection of patient's current condition. Confidential - Redisclosure prohibited without a patient's written consent.
[2017-08-05 22:58] LABS: Alpha 2 Globulin (PEP) 1.06 g/dL (0.48-1.05); Beta Globulin (PEP) 0.68 g/dL (0.48-1.10)
[2017-08-06 16:15] LABS: IFE Reflexed NOT DONE
== END 2017-08-04 16:00 | DRG 438 ==
LOC: 3BNU 19:54 → EMEROO 19:54 → 3BNU 23:39
PROVIDERS: ADMIT Pediatrics; ATTEND Pediatrics